=== PATIENT | male | born 1950 | race Caucasian/White ===

== ENCOUNTER 2017-06-24 07:16 | Inpatient (IN) | payer OTHER, BC ==
[~2017-06-24] VITALS: Ht 180.3 cm; Wt 109.6 kg
[~2017-06-24 07:16] MED LIST: ENAL1TAB31 PO; HYDR25TA5 PO; NAPR1TAB9 PO
[2017-06-24] MEDS ORDERED: OPTIRAY 320 IV PRN (07:45)
[2017-06-24 07:47] LABS: BASO % 0.3 %; BASO ABS # 0.02 K/uL (0-0.2); EOS % 3.4 %; HEMATOCRIT 41.3 % (42-52); HEMOGLOBIN 14.5 g/dL (14.0-18.0); IG# 0.01 K/uL (0.00-0.02); LYMPH % 40.1 %; LYMPH ABS # 2.38 K/uL (1.2-3.4); MEAN CELL VOLUME 93.2 fL (80-100); MEAN CORPUSCULAR HEMOGLOBIN 32.7 pg (25-34); MEAN CORPUSCULAR HGB CONC 35.1 g/dl (32-36); MEAN PLATELET VOLUME 9.6 fL (7.4-10.4); MONO % 11.8 %; NEUT % 44.2 %; NEUT ABS # 2.63 K/uL (1.4-6.5); PLATELET COUNT 170 K/uL (130-400); RED CELL DISTRIBUTION WIDTH CV 13.7 % (11.5-14.5); RED CELL DISTRIBUTION WIDTH SD 47.1 fL (36.4-46.3); WHITE BLOOD COUNT 5.94 K/uL (4.8-10.8)
[2017-06-24 08:04] LABS: ALBUMIN 3.9 gm/dl (3.4-5.0); CALCIUM 9.2 mg/dl (8.5-10.1); CREATININE 0.88 mg/dl (0.60-1.40); POTASSIUM 3.7 mmol/L (3.5-5.1)
[2017-06-24 08:07] LABS: TOTAL PROTEIN 8.5 gm/dl (6.4-8.2)
[2017-06-24] MEDS ORDERED: ACET325T96 PO (08:09)
--- NOTE | 2017-06-24 08:29 | EMERGENCY ROOM VISIT NOTE ---
ED Visit Note First contact with patient: 07:19 I have seen and examined this patient with Aaron Samaniego and generally agree with the treatment plan as discussed.
--- NOTE | 2017-06-24 10:39 | DIAGNOSTIC IMAGING REPORT ---
ABDOMEN AND PELVIS CT WITH IV AND ORAL CONTRAST CT DOSE: 1262.99 mGy.cm HISTORY: Acute upper abdominal pain upper abdominal pain TECHNIQUE: Multiaxial CT images of the abdomen and pelvis were performed following the use of intravenous and oral contrast. A dose lowering technique was utilized adhering to the principles of ALARA. COMPARISON STUDY: CT abdomen and pelvis 03/15/2015. FINDINGS: Minimal dependent subsegmental bibasilar atelectasis. No pneumatosis or pneumoperitoneum identified. Imaged inferior cardiac chambers are mildly enlarged with coronary arterial disease. Hepatic steatosis. No intrahepatic biliary ductal dilation. The spleen, gallbladder and adrenal glands are within normal limits. There is mild peripancreatic edema, notably surrounding the distal pancreatic body and tail with trace fluid within the lesser sac tracking along the left pericolic gutter. No focal hepatic fluid collections. There are a few punctate calcifications noted involving the pancreatic tail. No pancreatic ductal dilation or focal pancreatic mass identified. Low attenuating lesions of the kidneys bilaterally, left greater than right suggest renal cysts, largest which measures 4.2 cm. Mild nonspecific bilateral perinephric stranding. There are 3 nonobstructing calculi of the right kidney, all of which measure approximately 4 mm. No renal calculi or hydronephrosis. No ureteral calculi. Ureters and urinary bladder are within normal limits. Coarse calcifications of the central prostate. Mild atherosclerosis of the aorta. No bulky adenopathy. There is no bowel obstruction. Moderate sigmoid diverticulosis without CT evidence of acute diverticulitis. Appendix is normal. Diastases recti. Soft tissues appear unremarkable. Bones appear intact. Advanced multilevel facet arthropathy of the lower lumbar spine. Grade 1 anterolisthesis L4 on L5 likely secondary to long-standing facet disease. Mild levoscoliosis of the lumbar spine. IMPRESSION: 1. Findings compatible with mild acute pancreatitis. No acute pancreatic fluid collections identified. There are a few punctate calcifications of the pancreatic tail which may reflect sequela of chronic pancreatitis. 2. Nonobstructing right-sided nephrolithiasis. No hydronephrosis. 3. No bowel obstruction. 4. Moderate sigmoid colon diverticulosis without diverticulitis. 5. Hepatic steatosis. Electronically signed by: Gaurang Michelle M.D. 06/24/2017 10:38 AM Dictated Date/Time: 06/24/2017 10:27 AM
[2017-06-24] MEDS ORDERED: POLYETHYLENE (MIRALAX) 17 GM PACK PO PRN (11:30)
[2017-06-24] MEDS ORDERED: MAGNESIUM HYDROXIDE SUSP 30 ML UDC PO PRN (11:30)
[2017-06-24] MEDS ORDERED: ONDANSETRON INJ 2 MG/ML 2 ML VIAL IV PRN (11:30)
[2017-06-24] MEDS ORDERED: ALUMINUM/MAGNESIUM/SIMETH (MAALOX MAX) 30 ML UDC PO PRN (11:30)
[2017-06-24 11:40] VITALS: O2SAT 96; BMI 33.7
--- NOTE | 2017-06-24 11:53 | History and Physical ---
History & Physical Date of Service Jun 24, 2017. History & Physical admit #[id number]
--- NOTE | 2017-06-24 12:24 | HISTORY & PHYSICAL EXAMINATION ---
DATE OF ADMISSION: 06/24/2017 CHIEF COMPLAINT: Abdominal pain. HISTORY OF PRESENT ILLNESS: The patient is a very pleasant 66-year-old male who notes that he has had worsening abdominal pain over the last couple of days, he had a viral type illness at the end of the week last week, seemed mostly myalgias, a little bit of not exactly diarrhea, but change in his stools. No nausea, no vomiting at that point in time, but over the weekend and then through the early part of this week it has progressed to where he has had more upper abdominal pain. It hurts worse after he eats. Still no vomiting. No fevers, chills, or sweats, just generally feeling worse. He notes he feels like he is getting dehydrated as well, noting he drank a lot water last night and still did not really even pee much today and with all this going on it felt very reminiscent of when he had pancreatitis a couple years ago and he came to the ER for further evaluation. Here, the workup is consistent with an acute episode of pancreatitis and we were asked to see him for further evaluation and treatment. REVIEW OF SYSTEMS: Otherwise negative, except for as above. PAST MEDICAL HISTORY: Includes hypertension and remote nephrolithiasis. He specifically denies any cardiac disease. PAST SURGICAL HISTORY: Includes orthopedic surgeries of his knees. FAMILY HISTORY: No problems with pancreas or liver issues. Mom of COPD. Dad of silicosis. SOCIAL HISTORY: He is a never smoker, never alcohol, no drugs. He is and lives with his family. ALLERGIES: No known drug allergies. MEDICATIONS: Include enalapril and hydrochlorothiazide and p.r.n. Tylenol. He notes that he has taken enalapril and hydrochlorothiazide since he was in his 40s. PHYSICAL EXAMINATION: VITAL SIGNS: Temperature 36.8, pulse 75, respiratory rate 20, blood pressure 165/107, 95% on room air. GENERAL: He is awake, alert, oriented x3, pleasant, in no acute distress. HEAD, EYES, EARS, NOSE, AND THROAT: Normocephalic, atraumatic. Mucous membranes are moist. CARDIOVASCULAR: Regular without rubs, murmurs, or gallops. LUNGS: Clear to auscultation bilaterally. No rales, rhonchi, or wheezes. Good effort. ABDOMEN: Soft, mildly distended, epigastric tenderness and left upper quadrant tenderness without any guarding, rebound or rigidity. He has no right upper quadrant tenderness. The remainder of his abdomen other than being mildly distended is benign. EXTREMITIES: Show no cyanosis, clubbing or edema. No calf tenderness. SKIN: Shows no rashes, no pallor or icterus. MUSCULOSKELETAL: Exam shows no paraspinal hypertonicity in the back and no other gross abnormalities. MENTAL STATE: Good recent and remote recall. Normal mood and affect. Good judgment and insight. NEUROLOGIC: Cranial nerves II-XII are grossly intact. Gross motor and sensory are intact. LABORATORY AND DIAGNOSTICS: CBC with a white count of 5.94, hemoglobin 14.5, platelets 170. Complete metabolic panel with sodium 135, potassium 3.7, chloride 99, CO2 26, BUN 22, creatinine 0.88, calcium 9.2, glucose 122. Total bili is 0.5 with a direct of 0.1, AST 25, ALT 38, alkaline phosphatase 46, total protein 8.5, albumin 3.9, amylase 547, lipase 9,041. Urinalysis dark yellow, clear. Specific gravity 1.037, trace ketones, 5-10 hyaline casts, 10-[address] abdomen and pelvis shows fatty liver. No intrahepatic ductal dilation. Spleen, gallbladder, adrenal glands within normal limits. Mild peripancreatic edema notably surrounding the distal pancreatic body and tail with trace fluid in the lesser sac tracking along the left pericolic gutter. No focal hepatic collections. A few punctate calcifications involving pancreatic tail. No pancreatic ductal dilation or focal pancreatic mass identified. Low attenuating lesions of the kidneys bilaterally, left greater than right suggesting cysts, the largest of which is 4.2 cm, mild nonspecific bilateral perinephric stranding, 3 mm nonobstructing calculi of the right kidney, all of which measure approximately 4 mm. No renal calculi or hydronephrosis. No ureteral calculi. Ureters and urinary bladder are within normal limits. Coarse calcifications central prostate, mild atherosclerosis of the aorta. No bulky adenopathy, no bowel obstruction. Diverticulosis without diverticulitis. Appendix normal. Diastasis recti, soft tissue unremarkable. Bones intact. Facet arthropathy of the lower lumbar spine with grade 1 anterolisthesis of L4 on L5 appearing chronic and mild levoscoliosis of the lumbar spine. ASSESSMENT AND PLAN: 1. Acute probably recurrent pancreatitis. The differential for this obviously is broad, but it seems the most likely is post viral versus idiopathic. Biliary disease seems unlikely given that 3 years ago he had no gallstones. He has had no biliary type symptoms. He has a normal AST, ALT and alkaline phosphatase and no evidence of ductal issues on CT. Certainly if his symptoms change or other findings arise an ultrasound could be evaluated or MRCP or ERCP EUS could be done as well. At this point in time, these seem to be highly likely to be of little to no yield. Likewise while both of his blood pressure medicines can cause pancreatitis as a side effect, he has been on for probably about 25 years with no problems and given that he is feeling good in between this episode of pancreatitis and the episode from 2015, it seems extremely unlikely that that is the case. He does not drink so alcohol could not be the culprit. Certainly with fatty liver and his body habitus, while his triglycerides and sugars appeared good 3 years ago, common things are common so we will check an A1c and triglyceride level, but again most likely this is immune mediated. He also notes specifically that he was feeling fine with absolutely no residual or chronic symptoms in between the last episode and now. He also notes that one of the things that makes him pleased with his primary care physician is her very practical approach to things so in this respect we will initiate care managing the acute episode of pancreatitis with IV fluids, n.p.o. and pain control and then in terms of the recurrent the above differential noted and the probabilities of above noted, we will check triglycerides and A1c, but otherwise allow any further workup to fall under the auspices of his PCP, probably simply with following him clinically, serial exams and maybe a lipase level on what appears to be a good day. Should there be any abnormalities then further workup could be launched. I suspect he will do quite well. He certainly appears to need to be admitted, but does not appear to be in any extreme duress. 2. Fatty liver. A1c and triglycerides as above. About 2-1/2 years ago, his total cholesterol was 151 with an LDL of 98, HDL of 35. Triglycerides were 88. His A1c almost a decade ago was 6, will wait on current findings. He does not drink. Otherwise outpatient followup. 3. Mildly elevated total protein, outpatient followup. 4. Mild hyponatremia, probably relates to poor p.o. intake and attempted hydration with predominantly water alone. We will follow. 5. Hypertension. We will hold his home meds for now as noted above. Certainly his home meds can be culprit in pancreatitis but does not appear to be the case with him. 6. Deep venous thrombosis prophylaxis, Lovenox. 7. Disposition. He will be admitted to med/surg under the [facility] Hospitalist service.
--- NOTE | 2017-06-24 13:50 | EMERGENCY ROOM VISIT NOTE ---
ED Visit Note First contact with patient: 07:19 Chief Complaint: Abdominal pain. History of Present Illness: Mr. Caicedo is a 66-year-old white male who ambulates into the ED complaining of bilateral upper abdominal pain. Historically patient reports he has a history of idiopathic pancreatitis; he was admitted approximately 3 years ago the hospital for his pancreatitis. The exact cause of his pancreatitis was not identified was not related to his gallbladder or alcohol use. Patient reports late last week he reports he started developing some sensations of what he describes as flulike symptoms including body aches, mild fevers, headaches. They resolved after approximately 3 days. Then on Thursday, 2 days ago, he started developing abdominal pain. He reports since that time the pain has been constant but has waxed and waned in intensity. He does report this is similar to his previous pain associated with his pancreatitis. He places his discomfort just below the epigastrium in both the right and left upper quadrants. He describes his discomfort as a deep achy sensation. Currently he rates his discomfort 7/10. The pain is nonradiating. His pain worsens after he eats. He has not identified any alleviating factors that time. He reports he has taken acetaminophen with questionable results. Associated with his pain he reports he's had a few episodes of watery stools. He denies any associated fevers, chills, sweats, skin eruptions, skin color changes, chest pain, shortness of breath, nausea, vomiting, rectal bleeding, black/tarry stools, urinary symptoms, hematuria, back/flank pain. Review of Systems: As noted above in history of present illness. At least body systems were reviewed and found to be negative as noted above. Past Medical History: As previously noted and hypertension. Current Medications: Acetaminophen, Vasotec, hydrochlorothiazide. Allergies to Medications: Patient denies. Social History: Patient is currently retired; he feels safe in his home environment; he denies tobacco and alcohol use. Physical Examination: Vital Signs: Date Time Temp Pulse Resp B/P (MAP) Pulse Ox O2 Delivery O2 Flow Rate FiO2 06/24/17 10:43 78 18 145/94 96 Room Air 06/24/17 09:18 86 16 161/98 96 Room Air 06/24/17 08:01 64 06/24/17 07:49 73 16 142/84 96 Room Air 06/24/17 07:19 36.8 75 20 165/107 95 Room Air GENERAL: 66-year-old male in mild distress due to pain, nontoxic-appearing, afebrile and hemodynamically stable. NEUROLOGICAL: Awake, alert and oriented to person, place and time. Answering questions appropriately and following commands. Normal gait. Good hand eye coordination. No focal motor sensory deficits. SKIN: Warm, dry and pink. No soft tissue eruptions or trauma noted. HEENT: Atraumatic and normocephalic. PERRLA. Sclera white and conjunctiva pink. No drainage from naris. Oral cavity moist and pink. Pharynx is nonerythematous or edematous. Speech normal. No lymphadenopathy. Trachea midline. No jugular venous distention. BACK: No tenderness over the bony spine. No CVA tenderness. THORAX: Lungs sounds are clear to auscultation and equal bilaterally with symmetrical chest wall. No wheezing, rales or rhonchi. No crepitus, tenderness , subcutaneous air or deformities noted. HEART: Regular rate and rhythm. No gallops, rubs or murmurs are appreciated. ABDOMEN: Flat and soft with mild upper abdominal pain over the superior borders of the right and left upper quadrants. Decreased bowel sounds in all quadrants. No guarding, rigidity or organomegaly. EXTREMITIES: Moves all extremities well on command and with purpose. All distal neurovascular statuses are intact and equal bilaterally. No calf tenderness or cords. ED Course: Patient is assessed as noted above. Patient's medication list was reviewed. Laboratory Testing: Test 06/24/17 07:30 Range/Units White Blood Count 5.94 4.8-10.8 K/uL Red Blood Count 4.43 4.7-6.1 M/uL Hemoglobin 14.5 14.0-18.0 g/dL Hematocrit 41.3 42-52 % Mean Corpuscular Volume 93.2 80-100 fL Mean Corpuscular Hemoglobin 32.7 25-34 pg Mean Corpuscular Hemoglobin Concent 35.1 32-36 g/dl Platelet Count 170 130-400 K/uL Mean Platelet Volume 9.6 7.4-10.4 fL Neutrophils (%) (Auto) 44.2 % Lymphocytes (%) (Auto) 40.1 % Monocytes (%) (Auto) 11.8 % Eosinophils (%) (Auto) 3.4 % Basophils (%) (Auto) 0.3 % Neutrophils # (Auto) 2.63 1.4-6.5 K/uL Lymphocytes # (Auto) 2.38 1.2-3.4 K/uL Monocytes # (Auto) 0.70 0.11-0.59 K/uL Eosinophils # (Auto) 0.20 0-0.5 K/uL Basophils # (Auto) 0.02 0-0.2 K/uL RDW Standard Deviation 47.1 36.4-46.3 fL RDW Coefficient of Variation 13.7 11.5-14.5 % Immature Granulocyte % (Auto) 0.2 % Immature Granulocyte # (Auto) 0.01 0.00-0.02 K/uL Urine Color DK YELLOW Urine Appearance CLEAR CLEAR Urine pH 5.0 4.5-7.5 Urine Specific [facility] 1.037 1.000-1.030 Urine Protein 1+ NEG Urine Glucose (UA) NEG NEG Urine Ketones TRACE NEG Urine Occult Blood NEG NEG Urine Nitrite NEG NEG Urine Bilirubin NEG NEG Urine Urobilinogen NEG NEG Urine Leukocyte Esterase NEG NEG Urine WBC (Auto) 1-5 0-5 /hpf Urine RBC (Auto) 0-4 0-4 /hpf Urine Hyaline Casts (Auto) 5-10 0-5 /lpf Urine Epithelial Cells (Auto) 10-20 0-5 /lpf Urine Bacteria (Auto) NEG NEG Sodium Level 135 136-145 mmol/L Potassium Level 3.7 3.5-5.1 mmol/L Chloride Level 99 98-107 mmol/L Carbon Dioxide Level 26 21-32 mmol/L Anion Gap 9.0 3-11 mmol/L Blood Urea Nitrogen 22 7-18 mg/dl Creatinine 0.88 0.60-1.40 mg/dl Est Creatinine Clear Calc Drug Dose 101.1 ml/min Estimated GFR () 102.3 Estimated GFR (Non- 88.3 BUN/Creatinine Ratio 24.7 10-20 Random Glucose 122 70-99 mg/dl Calcium Level 9.2 8.5-10.1 mg/dl Total Bilirubin 0.5 0.2-1 mg/dl Direct Bilirubin 0.1 0-0.2 mg/dl Aspartate Amino Transf (AST/SGOT) 25 15-37 U/L Alanine Aminotransferase (ALT/SGPT) 38 12-78 U/L Alkaline Phosphatase 46 45-117 U/L Total Protein 8.5 6.4-8.2 gm/dl Albumin 3.9 3.4-5.0 gm/dl Triglycerides Level 89 0-150 mg/dl Amylase Level 547 25-115 U/L Lipase 9041 73-393 U/L Contrast Abdominal/Pelvic CT: Was reviewed by myself and read by the radiologist showing mild acute pancreatitis with no fluid collections. Radiologist does note a few punctate calcifications within the tail of the pancreas, nonobstructing right sided nephrolithiasis with no hydronephrosis, no bowel obstruction, mild sigmoid colon diverticulosis without diverticulitis and hepatic steatosis. Patient was hydrated with normal saline; he refused pain medications. Patient was reassessed multiple times during his stay in the emergency department; he was offered pain medications and continue to refuse. Patient's case was reviewed with Dr. Ponce; we agreed on diagnostic approach , treatment, disposition and plan. Patient's case was consulted with case management and Dr. Damon, hospitalist ; for hospital observation or admission. Patient was educated about today's findings. Clinical Impression: Acute pancreatitis. Decision-Making: Initially my differential diagnosis I considered pancreatitis, hepatitis, cholecystitis, constipation, bowel obstruction, GERD and other causes. Patient's blood pressure: Elevated. Blood pressure disposition: Situational; follow-up. Disposition and Plan: Patient be brought in the hospital for observation/ admission; please see Dr. Damon's notes and orders for final disposition and plan.
[2017-06-24] MEDS: LACTATED RINGER'S 1000ML 1,000 ML IV SCH ×2 (14:35→19:15)
[2017-06-24 16:02] VITALS: BP 161/98; PULSE 84; TEMP 36.9; O2SAT 97
[2017-06-24] MEDS: ENOXAPARIN 40 MG/0.4 ML SYR SQ SCH (18:00)
[2017-06-24] MEDS: MoRPHine SULFATE 2 MG/ML CARP IV PRN (21:25)
[2017-06-24] MEDS ORDERED: COUGH DROP (SUGAR FREE) LOZ 24 LOZ/1 BOX ONE (21:39)
[2017-06-24] MEDS ORDERED: COUGH DROP (SUGAR FREE) LOZ 24 LOZ/1 BOX PO PRN (23:00)
[2017-06-24 23:41] VITALS: BP 123/76; PULSE 63; TEMP 36.4; O2SAT 92
[2017-06-25 00:02] VITALS: BP 131/71; PULSE 83; TEMP 37.1; O2SAT 95
[2017-06-25] MEDS: LACTATED RINGER'S 1000ML 1,000 ML IV SCH ×4 (00:15→17:54)
[2017-06-25] MEDS: MoRPHine SULFATE 2 MG/ML CARP IV PRN (03:09)
[2017-06-25 06:15] LABS: HEMOGLOBIN A1C 6.4 % (4.5-5.6)
[2017-06-25 07:46] LABS: HEMATOCRIT 36.6 % (42-52); HEMOGLOBIN 12.5 g/dL (14.0-18.0); MEAN CELL VOLUME 92.9 fL (80-100); MEAN CORPUSCULAR HEMOGLOBIN 31.7 pg (25-34); MEAN CORPUSCULAR HGB CONC 34.2 g/dl (32-36); MEAN PLATELET VOLUME 9.6 fL (7.4-10.4); PLATELET COUNT 158 K/uL (130-400); RED CELL DISTRIBUTION WIDTH CV 13.3 % (11.5-14.5); RED CELL DISTRIBUTION WIDTH SD 45.4 fL (36.4-46.3); WHITE BLOOD COUNT 5.55 K/uL (4.8-10.8)
[2017-06-25 07:58] VITALS: BP 158/86; PULSE 90; TEMP 36.9; O2SAT 95
[2017-06-25 08:06] LABS: CALCIUM 8.6 mg/dl (8.5-10.1); CREATININE 0.71 mg/dl (0.60-1.40)
[2017-06-25 08:13] LABS: BASO % 0.4 %; BASO ABS # 0.02 K/uL (0-0.2); EOS % 3.8 %; EOS ABS # 0.21 K/uL (0-0.5); IG# 0.01 K/uL (0.00-0.02); LYMPH % 32.1 %; LYMPH ABS # 1.78 K/uL (1.2-3.4); MONO ABS # 0.72 K/uL (0.11-0.59); NEUT % 50.5 %; NEUT ABS # 2.81 K/uL (1.4-6.5)
--- NOTE | 2017-06-25 09:07 | DIAGNOSTIC IMAGING REPORT ---
Biliary ultrasound CLINICAL HISTORY: pancreatitis COMPARISON STUDY: CT scan dated 06/24/2017, gallbladder ultrasound dated 03/17/2015 FINDINGS: The liver is of increased echogenicity, consistent with hepatic steatosis. No gallstones are visualized. There is no gallbladder wall thickening. There is no ductal dilatation. The common bile duct measured 5 mm. The head and body the pancreas appear normal. The tail was obscured by bowel gas. There is no right-sided hydronephrosis. There is a suspected right renal calculus. IMPRESSION: 1. Ultrasonographically normal gallbladder. No evidence of ductal dilatation 2. Hepatic steatosis 3. Right-sided nephrolithiasis Electronically signed by: Brian Valdez M.D. 06/25/2017 9:06 AM Dictated Date/Time: 06/25/2017 9:04 AM
--- NOTE | 2017-06-25 09:25 | Hospitalist Progress Note ---
Hospitalist Progress Note Date of Service Jun 25, 2017. Subjective Pt evaluation today including: conversation w/ patient, physical exam, chart review, lab review, review of studies Pain: mild epigastric pain Voiding: no voiding problems The patient was seen and examined this morning. Pt reports doing well today. His pain is much more tolerable today. Overnight he required two doses of morphine for pain, and he does have a dull headache today, along with feeling of not quite thinking straight. He is hoping to try to drink something soon, will order clears for today and trial. Pt has been ambulating about the rodriguez. Constitutional: No fever, No chills, No sweats, No fatigue Eyes: No redness, No diplopia ENT: No hearing loss, No nasal symptoms Respiratory: No cough, No sputum, No wheezing, No shortness of breath Cardiovascular: No see HPI, No chest pain, No edema Abdomen: + see HPI, No nausea, No diarrhea, No constipation Musculoskeletal: No joint pain, No muscle pain, No swelling Male : No dysuria, No incontinence Psychiatric: No depression symptoms, No anxiety Endo: No fatigue Skin: No rash, No itch Objective Vital Signs Date Time Temp Pulse Resp B/P (MAP) Pulse Ox O2 Delivery O2 Flow Rate FiO2 06/25/17 07:58 36.9 90 18 158/86 (110) 95 Room Air 06/25/17 00:30 Room Air 06/25/17 00:02 37.1 83 18 131/71 (91) 95 Room Air 06/24/17 23:41 36.4 63 18 123/76 (92) 92 Nasal Cannula 2.0 06/24/17 16:02 36.9 84 20 161/98 (119) 97 Room Air 06/24/17 16:00 Room Air 06/24/17 12:45 Room Air 06/24/17 12:23 85 18 157/103 97 06/24/17 12:22 85 18 157/103 97 Room Air 06/24/17 11:40 96 Room Air 06/24/17 11:31 81 06/24/17 10:43 78 18 145/94 96 Room Air Physical Exam General Appearance: WD/WN, no apparent distress Eyes: PERRL, EOMI ENT: hearing grossly normal, pharynx normal Neck: supple, no JVD Respiratory/Chest: lungs clear, no respiratory distress, no accessory muscle use, + pertinent finding (on RA) Cardiovascular: regular rate, rhythm, no murmur Abdomen: normal bowel sounds, soft, + tenderness (mild with deep palpation in epigastric) Extremities: non-tender, no pedal edema, no calf tenderness Neurologic/Psychiatric: alert, normal mood/affect, oriented x 3 Laboratory Results Last 24 Hours Test 06/25/17 07:14 White Blood Count 5.55 K/uL Red Blood Count 3.94 M/uL Hemoglobin 12.5 g/dL Hematocrit 36.6 % Mean Corpuscular Volume 92.9 fL Mean Corpuscular Hemoglobin 31.7 pg Mean Corpuscular Hemoglobin Concent 34.2 g/dl Platelet Count 158 K/uL Mean Platelet Volume 9.6 fL Neutrophils (%) (Auto) 50.5 % Lymphocytes (%) (Auto) 32.1 % Monocytes (%) (Auto) 13.0 % Eosinophils (%) (Auto) 3.8 % Basophils (%) (Auto) 0.4 % Neutrophils # (Auto) 2.81 K/uL Lymphocytes # (Auto) 1.78 K/uL Monocytes # (Auto) 0.72 K/uL Eosinophils # (Auto) 0.21 K/uL Basophils # (Auto) 0.02 K/uL RDW Standard Deviation 45.4 fL RDW Coefficient of Variation 13.3 % Immature Granulocyte % (Auto) 0.2 % Immature Granulocyte # (Auto) 0.01 K/uL Red Blood Cell Morphology Unremarkable Sodium Level 135 mmol/L Potassium Level 4.0 mmol/L Chloride Level 100 mmol/L Carbon Dioxide Level 26 mmol/L Anion Gap 9.0 mmol/L Blood Urea Nitrogen 16 mg/dl Creatinine 0.71 mg/dl Est Creatinine Clear Calc Drug Dose 125.3 ml/min Estimated GFR () 111.7 Estimated GFR (Non- 96.4 BUN/Creatinine Ratio 22.6 Random Glucose 103 mg/dl Calcium Level 8.6 mg/dl Lipase 4498 U/L Assessment and Plan This is a 66 yo M with PMHX of recurrent pancreatitis, hypertension and remote nephrolithiasis Acute pancreatitis - Possible post viral vs idiopathic etiology - Lipase trending down from >9000 to 4498 today - trial clear liquid diet - Continue supportive care with pain control, IVFs - if tolerates clears, can turn off IVF later tonight or tomorrow morning. - Pt denies etoh use - Changed vasotec to amlodipine as this does have a small side effect profile to cause pancreatitis. Pt notes a chronic dry cough which should also be alleviated with the medication switch. - Abd U/S checked today: Ultrasonographically normal gallbladder. No evidence of ductal dilatation, hepatic steatosis, right-sided nephrolithiasis - Abd CT also appears essentially unremarkable. New onset DM II - Hgb A1C = 6.4 - diet and exercise modifications will need to be discussed in detail prior to leave, - can ask PCP to follow up HTN - Not on meds THREAD LASTER CODE STATUS: Full code DVT ppx: Lovenox, ambulatory Disposition: From home, discharge when medically stable, likely tomorrow if tolerates diet and pain well controlled today.
[2017-06-25] MEDS: ACETAMINOPHEN 325 MG TAB PO PRN ×3 (09:31→21:33)
[2017-06-25] MEDS: AMLODIPINE BESYLATE 5 MG TAB PO SCH (12:46)
[2017-06-25 15:23] VITALS: BP 169/90; PULSE 77; TEMP 37; O2SAT 96
[2017-06-25 16:00] VITALS: O2SAT 96
[2017-06-25] MEDS: ENOXAPARIN 40 MG/0.4 ML SYR SQ SCH (17:51)
[2017-06-25 21:35] VITALS: BP 160/88; PULSE 74
[2017-06-25 23:26] VITALS: BP 145/77; PULSE 80; TEMP 37.1; O2SAT 93
[2017-06-26] MEDS: LACTATED RINGER'S 1000ML 1,000 ML IV SCH ×4 (01:15→11:15)
[2017-06-26 08:02] VITALS: BP 170/81; PULSE 77; TEMP 37; O2SAT 96
[2017-06-26] MEDS: AMLODIPINE BESYLATE 5 MG TAB PO SCH (09:13)
[2017-06-26 11:00] VITALS: BP 170/92
[2017-06-26] MEDS ORDERED: NRV5 PO (12:03)
--- NOTE | 2017-06-26 12:07 | Discharge Instructions ---
Discharge Instructions Date of Service Jun 26, 2017. Admission Reason for Admission: Acute Pancreatitis Discharge Discharge Diagnosis / Problem: Acute pancreatitis Discharge Goals Goal(s): Improve disease control Activity Recommendations Activity Limitations: resume your previous activity . Instructions / Follow-Up Instructions / Follow-Up Please maintain a low fat/low fiber diet for the next couple of days and then advance as tolerated. Please follow up with your primary care provider in about a week Current Hospital Diet Patient's current hospital diet: Low Fat Diet, Low Fiber Diet Discharge Diet Recommended Diet: Low Fiber Diet, Low Fat Diet Procedures Procedures Performed: Abdominal US Abdominal CT Pending Studies Studies pending at discharge: no Laboratory Results Hemoglobin A1c Test 06/24/17 07:30 Range/Units Estimated Average Glucose 137 mg/dl Hemoglobin A1c 6.4 H 4.5-5.6 % Lipid Panel Test 06/24/17 07:30 Range/Units Triglycerides Level 89 0-150 mg/dl Medical Emergencies . Who to Call and When: Medical Emergencies: If at any time you feel your situation is an emergency, please call 911 immediately. . Non-Emergent Contact Non-Emergency issues call your: Primary Care Provider Call Non-Emergent contact if: you have any medication questions . . "Provider Documentation" section prepared by Maribel Wilson. . VTE Core Measure Inpt VTE Proph given/why not?: Refusal of treatmnt by pt
--- NOTE | 2017-06-26 12:23 | Discharge Summary ---
Discharge Summary Date of Service Jun 26, 2017. Discharge Summary Admission Date: Jun 24, 2017 at 11:25 Discharge Date: Jun 26, 2017 Discharge Disposition: Home Principal Diagnosis: Acute Pancreatitis Problems/Secondary Diagnoses: New onset DM II, HTN Immunizations: Have You Had Influenza Vaccine: No History of Tetanus Vaccine?: Yes Tetanus Immunization Date: Apr 08, 2007 History of Pneumococcal: No History of Hepatitis B Vaccine: No Procedures: Biliary ultrasound CLINICAL HISTORY: pancreatitis COMPARISON STUDY: CT scan dated 06/24/2017, gallbladder ultrasound dated 03/17/2015 FINDINGS: The liver is of increased echogenicity, consistent with hepatic steatosis. No gallstones are visualized. There is no gallbladder wall thickening. There is no ductal dilatation. The common bile duct measured 5 mm. The head and body the pancreas appear normal. The tail was obscured by bowel gas. There is no right-sided hydronephrosis. There is a suspected right renal calculus. IMPRESSION: 1. Ultrasonographically normal gallbladder. No evidence of ductal dilatation 2. Hepatic steatosis 3. Right-sided nephrolithiasis ABDOMEN AND PELVIS CT WITH IV AND ORAL CONTRAST CT DOSE: 1262.99 mGy.cm HISTORY: Acute upper abdominal pain upper abdominal pain TECHNIQUE: Multiaxial CT images of the abdomen and pelvis were performed following the use of intravenous and oral contrast. A dose lowering technique was utilized adhering to the principles of ALARA. COMPARISON STUDY: CT abdomen and pelvis 03/15/2015. FINDINGS: Minimal dependent subsegmental bibasilar atelectasis. No pneumatosis or pneumoperitoneum identified. Imaged inferior cardiac chambers are mildly enlarged with coronary arterial disease. Hepatic steatosis. No intrahepatic biliary ductal dilation. The spleen, gallbladder and adrenal glands are within normal limits. There is mild peripancreatic edema, notably surrounding the distal pancreatic body and tail with trace fluid within the lesser sac tracking along the left pericolic gutter. No focal hepatic fluid collections. There are a few punctate calcifications noted involving the pancreatic tail. No pancreatic ductal dilation or focal pancreatic mass identified. Low attenuating lesions of the kidneys bilaterally, left greater than right suggest renal cysts, largest which measures 4.2 cm. Mild nonspecific bilateral perinephric stranding. There are 3 nonobstructing calculi of the right kidney, all of which measure approximately 4 mm. No renal calculi or hydronephrosis. No ureteral calculi. Ureters and urinary bladder are within normal limits. Coarse calcifications of the central prostate. Mild atherosclerosis of the aorta. No bulky adenopathy. There is no bowel obstruction. Moderate sigmoid diverticulosis without CT evidence of acute diverticulitis. Appendix is normal. Diastases recti. Soft tissues appear unremarkable. Bones appear intact. Advanced multilevel facet arthropathy of the lower lumbar spine. Grade 1 anterolisthesis L4 on L5 likely secondary to long-standing facet disease. Mild levoscoliosis of the lumbar spine. IMPRESSION: 1. Findings compatible with mild acute pancreatitis. No acute pancreatic fluid collections identified. There are a few punctate calcifications of the pancreatic tail which may reflect sequela of chronic pancreatitis. 2. Nonobstructing right-sided nephrolithiasis. No hydronephrosis. 3. No bowel obstruction. 4. Moderate sigmoid colon diverticulosis without diverticulitis. 5. Hepatic steatosis. Medication Reconciliation New Medications: Amlodipine Besylate (Amlodipine Besylate) 5 Mg Tab 5 MG PO QAM for 30 Days, #30 TAB Continued Medications: Acetaminophen Tab (Tylenol) 325 Mg Tab 650 MG PO BID Enalapril Maleate (Vasotec) 20 Mg Tab 20 MG PO QAM Hydrochlorothiazide (Hydrochlorothiazide) 25 Mg Tab 25 MG PO DAILY Discharge Exam ROS Constitutional: no chills, aches, sweats or fever Respiratory: no sob,cough, sputum, or wheezing Cardiac: no chest pain, palpitations, edema, orthopnea or lightheadedness GI: no abdominal pain, nausea, vomiting, diarrhea or constipation : no dysuria or hesitancy Extremities: no joint pain or weakness Skin: no rash All other systems reviewed and negative PE General: no distress Eyes: normal inspection, PERLL Respiratory: chest non tender, clear to auscultation, normal breath sounds, no respiratory distress, no accessory muscle use Cardiac: regular rate and rhythm, no rub or gallop, no murmur, no edema, no jvd GI/: active bowel sounds, no abd pain or tenderness, soft, non distended Extremities: normal range of motion, normal strength, non tender Neuro/Psych: alert and oriented x 3, normal mood and affect Skin: normal color, dry Hospital Course This is a 66 yo M with PMHX of recurrent pancreatitis, hypertension and remote nephrolithiasis Acute pancreatitis - Possible post viral vs idiopathic etiology - Lipase trended down from >9000 - tolerated advancing diet to low fat/low fiber today - has not required analgesia in 24 hours and is pain free today - Pt denied etoh use - Changed vasotec to amlodipine as this does have a small side effect profile to cause pancreatitis. Pt notes a chronic dry cough which should also be alleviated with the medication switch. - Abd U/S checked today: Ultrasonographically normal gallbladder. No evidence of ductal dilatation, does have hepatic steatosis, right-sided nephrolithiasis. Hepatic steatosis can be addressed with outpatient follow up with pcp - Abd CT also appears essentially unremarkable. Prediabetes - patient provided education - Hgb A1C = 6.4 - should be addressed with follow up with pcp HTN - amlodipine instead of vasotec for home as above, restarted HCTZ which was held due to mild hyponatremia of 135, hyponatremia remained 135 but patient is asymptomatic so would resume HCTZ Total Time Spent: Greater than 30 minutes This includes examination of the patient, discharge planning, medication reconciliation, and communication with other providers. Discharge Instructions Please refer to the electronic Patient Visit Report (Discharge Instructions) for additional information. Follow-Up Follow up with pcp within about a week Additional Copies To Yola Garcia M.D.
[2017-06-26 12:27] VITALS: BP 155/88
[2017-06-26 14:35] VITALS: BP 164/88; PULSE 87; TEMP 37.2; O2SAT 94
[2017-06-26 15:06] VITALS: Ht 180.3 cm; Wt 109.6 kg
[2017-06-26 15:58] VITALS: BP 164/88; PULSE 87; TEMP 37.2; O2SAT 94
== END 2017-06-26 16:38 | disposition home or self-care (01) | DRG 439 ==
LOC: C.EDB 07:17 → C.MS4W 11:25 → EDBEDREQSVC 11:29 → ENRESERV 12:05
PROVIDERS: ADMIT Family Medicine; ATTEND Hospitalist
DX: K85.90 Acute pancreatitis without necrosis or infection, unspecified (principal); E87.1 Hypo-osmolality and hyponatremia; I10 Essential (primary) hypertension; K76.0 Fatty (change of) liver, not elsewhere classified; E11.9 Type 2 diabetes mellitus without complications

== ENCOUNTER 2018-12-16 08:06 | Inpatient (IN) ==
[~2018-12-16 08:06] MED LIST changes: +CEFAZOLIN 2000MG 2,000 MG/15 ML SYR IV SCH; -ENAL1TAB31 PO; -HYDR25TA5 PO; -NAPR1TAB9 PO
--- OUTSIDE RECORDS SUMMARY | 2018-12-16 08:09 | External Medical Summary | Continuity of Care Document ---
:1950 Author Name Bryan M.D., Provider Address Unavailable Unavailable , Care Team Providers Name Role Phone Unavailable Unavailable Unavailable COLEBrice Unavailable Unavailable Unavailable Unavailable Unavailable Problems Hypertension (401.9) (I10) Dysuria (788.1) (R30.0) Ureteral stone (592.1) (N20.1) Allergies and Adverse Reactions No Known Drug Allergies (Allergy) Medications hydroCHLOROthiazide 25 MG Oral Tablet , M.D. Refills: 0 Enalapril Maleate 20 MG Oral Tablet , M.D. Refills: 0 Aleve 220 MG Oral Tablet , M.D. Refills: 0 Procedures History of Knee Replacement Status: Comp leted Immunizations Immunizations not documented Family History natural daughter Family history of kidney stones (V18.69) (Z84.1) Status: Act chrissy Brother Family history of kidney stones (V18.69) (Z84.1) Status: Act chrissy Social History - Smoking Status Never smoker Plan of Treatment Planned Observations Planned Goals not documented Results No Known Results Results not documented
--- NOTE | 2018-12-16 09:11 | XRay Report ---
LEFT KNEE 3 VIEWS CLINICAL HISTORY: Left knee pain. Fall. FINDINGS: AP, crosstable lateral, and sunrise views of the left knee are obtained. No prior studies a re available for comparison at the time of dictation. The examination is degraded by suboptimal posit ioning. The skeletal structures are osteopenic. No fracture is seen. A left knee arthroplasty is in p lace. There has been undersurface remodeling of the patella. No periprosthetic lucency is identified. Question mild dorsal subluxation of the tibial component of the arthroplasty as compared to the dist al femur. There is no joint effusion. Mild overlying soft tissue edema is noted. IMPRESSION: 1. Soft tissue swelling with no radiographic evidence of fracture. 2. A left knee arthroplasty is in place. 3. Question mild posterior subluxation of the tibial component of the arthroplasty as compared to the distal femur. This may be positional and clinical correlation will be required. Electronically signed by: Bert Jamil M.D. 12/16/2018 9:10 AM
--- NOTE | 2018-12-16 10:01 | Emergency Department Note ---
History of Present Illness General Chief complaint: Knee Injury/Pain Stated complaint: LEFT KNEE PAIN Time Seen by Provider: 12/16/18 08:37 History of Present Illness Maximum Pain Intensity: 5 68-year-old male who presents the emergency department for evaluation of left knee pain that is possibly secondary to dislocation. The patient reports a prior history of left knee replacement by [facility]. The patient reports that he was sitting in his recliner this morning, and while attempting to walk backward, felt a pop in the knee. The patient now reports inability to flex or extend the knee, rating his discomfort a 5 out of 10. He denies any other postoperative complications after his surgery that was performed by Dr. Faust. Home Medications Home Medications Medication Instructions Recorded Confirmed Type amlodipine 5 mg PO QAM 12/16/18 12/16/18 History hydrochlorothiazide 25 mg PO QAM 12/16/18 12/16/18 History naproxen sodium [Aleve] 220 mg PO QAM 12/16/18 12/16/18 History Allergies Allergy/AdvReac Type Severity Reaction Status Date / Time No Known Drug Allergies Allergy Unknown NKDA Verified 12/16/18 08:39 Past Med/Surg History Medical History History of pancreatitis Hypertension Surgical History H/O repair of left rotator cuff History of left knee replacement Social History Preferred Language: Icelandic Communication Ability: Effective Rouge Mixer Required: No Beliefs That Will Affect Care: None Current Living Situation: Spouse Other Information That Helps Us Care for You: No Feels Safe at Home: Yes Safety Concerns: Feels Safe At This Time Smoking Status: Never smoker Do You Dip or Chew Tobacco: No Second Hand Exposure: No Tobacco Cessation Education Requested by Patient: No Hx Alcohol Use: No Hx Substance Use: No Review of Systems 10 system review was performed and was negative except for pertinent positives and negatives as indicated in history of present illness Physical Exam Vital Signs Vital Signs - 24 hr 12/16/18 08:11 12/16/18 10:32 Temperature 36.8 C Temperature Source Oral Sepsis Recent Fever Within 48 Hours No Sepsis New/Unexplained Change in Mental Status No Sepsis Action Taken by Nursing No Action Required Pulse Rate 63 Pulse Rate [Finger] 56 L Respiratory Rate 18 20 Blood Pressure 181/94 H Blood Pressure [Left Arm] 140/91 Blood Pressure Mean 123 Blood Pressure Mean [Left Arm] 107 Pulse Oximetry 98 97 Oxygen Delivery Method Room Air Room Air CONSTITUTIONAL: Healthy and well nourished. Alert and oriented X 3. Patient appears in mild discomfort. HEENT: Normocephalic, atraumatic. Pupils equal, round and reactive. No scleral icterus or conjunctival injection. NECK: Full active range of motion without discomfort. LYMPHATICS: No cervical chain adenopathy. RESPIRATORY: Clear to auscultation bilaterally with no wheezing, crackles, rhonchi or stridor. CARDIOVASCULAR: Regular rate and rhythm with no murmurs, rubs or gallops. GASTROINTESTINAL: Bowel sounds present in all quadrants. Soft and nontender to palpation. MUSCULOSKELETAL: Examination shows a deformity of the left knee with posterior displacement of the tibia. The patient has mild discomfort about the patella which appears to be midline. I am unable to perform any passive flexion or extension without significant patient discomfort. Pedal pulses are intact. No soft tissue edema or ecchymosis noted. INTEGUMENTARY: No rash or other significant dermatologic conditions noted. HEMATOLOGIC: No ecchymosis or petechiae. PSYCHIATRIC: Positive affect. NEUROLOGIC: Left lower extremity is sensory intact. Course Patient history and physical exam were performed. Nurse's notes were reviewed. Vital signs were reviewed, showing an initial elevated blood pressure of 181/94. The patient refused any analgesics on initial exam. X-rays of the left knee is concerning for a posterior dislocation of the total knee arthroplasty. I did discuss the case further with Wilbert Martínez PA-C working with , [facility] Orthopedic surgeon. I did offer to order CT angiography study, however was advised that the patient would be admitted, undergo CT angiography and reduction in the operating room. The patient refused any analgesics prior to transfer of care. The patient has remained n.p.o. while in the emergency department, reporting having a couple sips of coffee around 6 AM this morning. Administered Medications Amlodipine Besylate (Norvasc) [facility] [place] Stop: 01/16/19 08:59 Last Admin: 12/16/18 17:06 Dose: 5 mg Documented by: [id number] Hydrochlorothiazide (Hctz) 25 mg PO QAM [facility] Stop: 01/16/19 08:59 Last Admin: 12/16/18 17:06 Dose: 25 mg Documented by: [id number] Cefazolin Sodium (Ancef 2000mg) 2,000 mg in 15 mls @ 3.75 mls/min IV PREOP ALEX; Protocol Stop: 12/17/18 05:59 Last Admin: 12/16/18 14:57 Dose: 3.75 mls/min Documented by: [id number] Medical Decision Making Medical Records Attestation: I reviewed the patient's medical records. Home Medications Current Medication List: was personally reviewed by me Laboratory Data Result diagrams: 12/16/18 12:37 12/16/18 12:37 Imaging Data Attestation: I personally reviewed and interpreted this imaging study as follows: My Impression: My interpretation of left knee x-rays does not show any periprosthetic fractures. There is a questionable mild posterior subluxation of the tibia component compared to the distal femur, which the radiologist reports may be positional. Radiologist's Impression: LEFT KNEE 3 VIEWS CLINICAL HISTORY: Left knee pain. Fall. FINDINGS: AP, crosstable lateral, and sunrise views of the left knee are obtained. No prior studies are available for comparison at the time of dictation. The examination is degraded by suboptimal positioning. The skeletal structures are osteopenic. No fracture is seen. A left knee arthroplasty is in place. There has been undersurface remodeling of the patella. No periprosthetic lucency is identified. Question mild dorsal subluxation of the tibial component of the arthroplasty as compared to the distal femur. There is no joint effusion. Mild overlying soft tissue edema is noted. IMPRESSION: 1. Soft tissue swelling with no radiographic evidence of fracture. 2. A left knee arthroplasty is in place. 3. Question mild posterior subluxation of the tibial component of the arthroplasty as compared to the distal femur. This may be positional and clinical correlation will be required. Blood Pressure Blood Pressure Findings: Elevated blood pressure MDM Narrative Patient presents the emergency department for evaluation of a left primary total knee dislocation that occurred this morning at home. X-rays does not show any periprosthetic fracture. I was concern for possible vascular injury, however orthopedics reported that they would perform further work-up and operative reduction of the dislocation. Impression & Plan Posterior dislocation of knee, closed, Status post total knee replacement, left Discharge Plan Visit Data *Final* Discharge Date/Time: 12/16/18 12:44 Chief Complaint: Knee Injury/Pain Stated Complaint: LEFT KNEE PAIN ED Provider: Rangel Carrillo ED Midlevel Provider: Dakota Cage Discharge Problem: Posterior dislocation of knee, closed, Status post total knee replacement, left Patient Disposition: Admitted As Inpatient Discharge Instructions Interventions: ED Discharge Assessment Last Done: 12/16/18 12:44
[2018-12-16] MEDS ORDERED: ONDANSETRON INJ 2 MG/ML 2 ML VIAL IV PRN ×2 (11:38→16:13)
[2018-12-16] MEDS ORDERED: HYDROmorphone INJ 0.5 MG/0.5 ML SYR IV PRN ×2 (11:38→16:13)
--- NOTE | 2018-12-16 12:19 | History and Physical Report ---
DATE OF ADMISSION: 12/16/2018 CHIEF COMPLAINT: Pain in the left knee. HISTORY OF PRESENT ILLNESS: The patient is a 68-year-old white female known to our practice from previous TKA bilaterally and also a recent rotator cuff surgery by Dr. Garrett. Total knee arthroplasties were placed by, I believe, Dr. Faust and the patient states he was in his usual state of health today when he was sitting in a chair, he states that he had reached down and had flexed his knee to some extent and as he was straightening it out to stand up, he felt a large pop and had pain in his knee and was unable to extend the knee itself. He had difficulty ambulating and was brought to the Emergency Room. He was seen by the staff. X-rays were taken and it was found that there was a question of a posterior subluxation of the tibial component of the arthroplasty, no fractures were noted. However, the patient had had some cough that morning and conscious sedation was not going to be able to be done. He is now going to be admitted to be taken to the operating room for closed reduction of his left TKA dislocation with possibility of open reduction if closed reduction is failed. I discussed this with the patient in detail and Dr. Chew will be speaking with him in a short while as well. The patient is in agreement for the plan and he will now be admitted for further care. PAST MEDICAL HISTORY: Hypertension, nephrolithiasis. He states he has had pancreatitis x2 in the past. He had no diagnosed ulcers of the stomach in the past but states he did have some dark stools at some point after a long-term use of Aleve, which he stopped for quite some time. He has not had any problem with that since then, but has not had any followup or colonoscopies, etc., or EGDs to diagnose anything. He denies diabetes mellitus, tuberculosis, hepatitis, COPD, rheumatic fever. PAST SURGICAL HISTORY: Bilateral total knee arthroplasties about 8 years ago 1 month apart and he had a rotator cuff repair done in his left shoulder approximately 2-[address] Garrett. FAMILY HISTORY: Mother had a history of COPD. Father of silicosis. ALLERGIES: NKDA. REVIEW OF SYSTEMS: No recent fevers, chills, night sweats, unexplained weight loss or weight gain. No flu or cold-like symptoms. No increased cough or sputum production. No increased shortness of breath at rest or on exertion. Denies chest pain, chest pressure, or irregular heartbeat. No history of CAD or myocardial infarction. Above-noted history of chronic nonsteroidal anti-inflammatory use for a while, which caused dark tarry stools, which he then himself stopped taking the NSAIDs and his stools cleared and he has not been seen or treated for anything at that point in time. No recent hematemesis, melena, or hematochezia. No unusual abdominal pain, nausea, vomiting, or diarrhea. No history of hepatitis in the past. History of pancreatitis x2. No history of frequent urinary tract infections, hematuria, pyuria, or dysuria. Positive for renal calculi in the past. No history of CVA, TIA, seizure disorders, or migraine headaches. PHYSICAL EXAMINATION: GENERAL: The patient is a well-developed, well-nourished white male who is alert and oriented x3 and in no acute distress, pleasant and cooperative. VITAL SIGNS: Today were BP 140/91, pulse 56, respirations 20, temperature 36.8, O2 sats 97. SKIN: Warm and dry. Turgor is good. HEENT: Head is normocephalic and atraumatic. There is no scleral icterus or injection. Nasal airway is patent. Oral mucosa is pink and moist. NECK: Supple. HEART: Regular rate and rhythm without murmurs, gallops or splits. LUNGS: CTA without rales, rhonchi or wheezes. ABDOMEN: Soft, round and nontender. Bowel sounds are present x4. GENITALIA AND RECTAL: Not performed at this time. EXTREMITIES: On examination of the patient's left lower extremity, he is seen in a wheelchair currently and is able to stand up, but he is not able to fully extend the left knee. It is locked in place and any type of forcing it does cause him pain. He states he has some slight numbness that is going down the front of his lower extremity below the knee but does not travel all the way to the foot and is very light at this time. He has good range of motion of his left ankle and toes with strengths being equal bilaterally. Distal pulses are equal bilaterally of the upper extremities. Right lower extremity is essentially unaffected and he has a scar from previous right TKA as well and has good range of motion at the ankle, hip and knee. Left upper extremity is in an abduction sling at this time due to recent rotator cuff surgery on the left shoulder. He has good left hand strength and is moving the fingers and wrist well. No further range of motion was done of the elbow and left shoulder at this time. Right upper extremity is within normal limits with range of motion and distal pulses are noted to be equal bilaterally. He denies neck pain, no thoracic or lumbar pain at this time. There is no gross motor or sensory loss other than due to a dislocated left TKA at this time noted. ASSESSMENT: Left total knee arthroplasty dislocation. PLAN: The patient will be taken to the operating room today by Dr. Chew to perform a closed reduction of the dislocated left knee, possible open reduction if closed reduction is failed.
--- NOTE | 2018-12-16 12:23 | XRay Report ---
XR chest 1V portable HISTORY: 68 years-old Male pre op preoperative exam. No acute chest complaints COMPARISON: Chest radiograph 03/15/2015 TECHNIQUE: Portable AP view the chest FINDINGS: Cardiac silhouette is mildly enlarged. Previously questioned nodular density about the left lung base is not definitively seen. There is no pneumothorax, pleural effusion, focal airspace consolidation o r overt pulmonary edema identified. Degenerative changes are seen about the shoulders and spine. IMPRESSION: No acute process. The above report was generated using voice recognition software. It may contain grammatical, syntax o r spelling errors. Electronically signed by: Gaurang Michelle M.D. 12/16/2018 12:21 PM
[2018-12-16 12:46] LABS: Basophils # (auto) 0.04 K/uL (0-0.2); Basophils % (auto) 0.6 %; Eosinophils # (auto) 0.13 K/uL (0-0.5); Hemoglobin 13.8 g/dL (14.0-18.0); Immature Granulocytes # (auto) 0.01 K/uL (0.00-0.02); Immature Granulocytes % (auto) 0.2 %; Lymphocytes % (auto) 32.2 %; Mean Corpuscular Hgb Conc 34.5 g/dL (32-36); Mean Corpuscular Volume 91.7 fL (80-100); Mean Platelet Volume 9.4 fL (7.4-10.4); Monocytes # (auto) 0.65 K/uL (0.11-0.59); Neutrophils # (auto) 3.59 K/uL (1.4-6.5); Platelet Count 204 K/uL (130-400); RDW Coefficient of Variation 13.8 % (11.5-14.5); RDW Standard Deviation 46.3 fL (36.4-46.3); Red Blood Count 4.36 M/uL (4.7-6.1); White Blood Count 6.52 K/uL (4.8-10.8)
[2018-12-16 12:57] LABS: INR 1.1 (0.9-1.1); Prothrombin Time 11.1 Seconds (9.0-12.0)
[2018-12-16 13:03] LABS: BUN Creatinine Ratio 27.2 (10-20); Calcium 9.8 mg/dl (8.5-10.1); Creatinine Clr Calc Pharmacy 104.3 ml/min; Est GFR (African American) 102.3; Est GFR (Non-African American) 88.3; Potassium 3.8 mmol/L (3.5-5.1)
--- NOTE | 2018-12-16 14:34 | Anesthesiology Consultation ---
Date of Service December 16, 2018 Assessment & Plan Chart Review Chart Review: Acceptable Risk for Surgery Consults Requested none History Surgery Operation Date: 12/16/18 15:40 Proposed Procedures p Left Closed Reduction Total Knee Arthroplasty - Luis Chew DO Height/Weight Height: 5 ft 11 in Weight: 115 kg Allergies Allergy/AdvReac Type Severity Reaction Status Date / Time No Known Drug Allergies Allergy Unknown NKDA Verified 12/16/18 08:39 Medications Home Medications Medication Instructions Recorded Confirmed Last Taken amlodipine 5 mg PO QAM 12/16/18 12/16/18 12/15/18 hydrochlorothiazide 25 mg PO QAM 12/16/18 12/16/18 12/15/18 naproxen sodium [Aleve] 220 mg PO QAM 12/16/18 12/16/18 12/15/18 NPO Date Last Intake of Fluids: 12/16/18 Time Last Intake of Fluids: 07:00 Date Last Intake of Solids: 12/16/18 Time Last Intake of Solids: 07:00 Past Medical History Medical History History of pancreatitis Hypertension Past Surgical History Surgical History H/O repair of left rotator cuff History of left knee replacement Social History Smoking Status: Never smoker Do You Dip or Chew Tobacco: No Hx Alcohol Use: No Hx Substance Use: No substance use type: does not use Physical Exam Vital Signs Last Vital Signs Temp 36.5 C 12/16/18 13:10 Pulse 51 L 12/16/18 13:10 Resp 15 12/16/18 13:10 BP 167/93 H 12/16/18 13:10 Pulse Ox 97 12/16/18 13:10 Testing Laboratory Results 12/16/18 12:37 12/16/18 12:37 PT 11.1 Seconds (9.0-12.0) 12/16/18 12:37 INR 1.1 (0.9-1.1) 12/16/18 12:37 Blood Type O Positive 12/16/18 12:37 Antibody Screen NEGATIVE 12/16/18 12:37
[2018-12-16] MEDS ORDERED: ATROPINE SULFATE 0.1 MG/ML 10ML SYR IV PRN (14:35)
[2018-12-16] MEDS ORDERED: ePHEDrine sulfate 50 MG/ML AMP IV PRN (14:35)
[2018-12-16] MEDS ORDERED: fentaNYL citrate 100 MCG/2 ML VIAL IV PRN (14:35)
[2018-12-16] MEDS ORDERED: HYDROmorphone INJ 2 MG/ML SYR/VIAL IV PRN (14:35)
[2018-12-16] MEDS ORDERED: MIDAZOLAM HCL 1 MG/ML 2ML VIAL ONE (14:41)
--- NOTE | 2018-12-16 14:41 | History & Physical Bridge Note ---
Date of Service December 16, 2018 History & Physical Bridge Note I have examined the patient, reviewed the History & Physical and in the interval since the performance of the History & Physical I have noted the following changes of clinical significance: no changes noted
[2018-12-16] MEDS ORDERED: PROPOFOL IV EMULSION 10 MG/ML 20 ML VIAL IV ONE (14:42)
[2018-12-16] MEDS ORDERED: ONDANSETRON INJ 2 MG/ML 2 ML VIAL ONE (14:42)
--- NOTE | 2018-12-16 14:43 | Orthopedic Progress Note ---
Date of Service December 16, 2018 Assessment & Plan (1) Left knee dislocation: I have indicated the patient for closed reduction of his left total knee. The risk benefits and complications as well as alternatives of the procedure were expanded the patient in detail which include however not limited to injury to nerves, bone, vessels, soft tissue, chronic pain, arthrofibrosis, compartment syndrome, loss of limb, loss of life, need for repeat reduction secondary to recurrent instability, need for revision total knee. Patient agreed to proceed with closed reduction at this time and informed consent was obtained. Subjective Patient seen in preoperative holding, comfortable, pain well controlled, no acute issues, n.p.o. for closed reduction left total knee. Review of Systems Review of Systems: All systems reviewed & are unremarkable except as noted in HPI & below Constitutional: as per Subjective / HPI Physical Exam Physical Exam: LLE NVSI +EHL/FHL/TA/GS SILT grossly, +2 DP pulse, compartments soft NT, knee flexed, obvious deformity, skin clean dry and intact Constitutional: WD/WN, vitals as above Results & Data Vital Signs (Past 12 Hours) Vital Signs Temp Pulse Pulse Resp BP BP Pulse Ox 12/16/18 14:37 36.7 C 65 20 168/87 H 97 12/16/18 13:10 36.5 C 51 L 15 167/93 H 97 12/16/18 11:40 59 L 20 165/88 H 97 12/16/18 10:32 56 L 20 140/91 97 12/16/18 08:11 36.8 C 63 18 181/94 H 98
[2018-12-16] MEDS ORDERED: LIDOCAINE HCL 2% 2 ML VIAL/AMP(20MG/ML) INFIL ONE (15:06)
--- NOTE | 2018-12-16 15:10 | Post Operative Brief Note ---
Immediate Post Op Note v1 Date of Surgery December 16, 2018 Pre & Post Diagnosis Operation Date: 12/16/18 15:40 <No data on this case meets the specified criteria> Dislocation left total knee Dislocation left total knee Procedure Operation Date: 12/16/18 15:40 <No data on this case meets the specified criteria> closed reduction left total knee Surgeon Luis Chew DO Relations Manager none Estimated Blood Loss 0 Findings Consistent with Post-Op Diagnosis Anesthesia Type General Complications none Disposition Disposition: Recovery Room Overlapping Procedure I was present for: the critical portions of procedure. I was immediately available: during the entire case. Back up surgeon: was not required during procedure.
--- NOTE | 2018-12-16 15:20 | Anesthesiology Progress Note ---
Date of Service December 16, 2018 Anesthesia Post Procedure Vital Signs Vital Signs: Temp Pulse Pulse Resp BP BP Pulse Ox 12/16/18 14:37 36.7 C 65 20 168/87 H 97 12/16/18 13:10 36.5 C 51 L 15 167/93 H 97 12/16/18 11:40 59 L 20 165/88 H 97 12/16/18 10:32 56 L 20 140/91 97 12/16/18 08:11 36.8 C 63 18 181/94 H 98 Pain Intensity Left Knee: Pain Intensity: 4 Transfer of Care Handoff Completed per policy Notes Mental Status: alert / awake / arousable and participated in evaluation Patient Amnestic to Procedure: Yes Nausea / Vomiting: adequately controlled Pain: adequately controlled Airway Patency, RR, SpO2: stable & adequate BP & HR: stable & adequate Hydration State: stable & adequate Anesthetic Complications: no major complications apparent
--- NOTE | 2018-12-16 15:25 | Fluoroscopy Report ---
FL knee LT 1 or 2V CLINICAL HISTORY: CLOSED REDUCTION LEFT TOTAL KNEE COMPARISON STUDY: Left knee 12/16/2018. FLUOROSCOPY TIME: 4 seconds. FINDINGS: 2 fluoroscopic spot images of the left knee status post left knee reduction. Alignment is a natomic. There is a left total knee arthroplasty. The hardware appears intact. No fracture or disloca tion. IMPRESSION: Fluoroscopy provided for reduction of the left knee. Electronically signed by: Honorio Perez M.D. 12/16/2018 3:23 PM
--- NOTE | 2018-12-16 15:48 | XRay Report ---
XR knee LT 2V routine CLINICAL HISTORY: 68 years-old Male presenting with post reduction, PACU. TECHNIQUE: Frontal and crosstable lateral views of the left knee were obtained. COMPARISON: 12/16/2018. FINDINGS: Total left knee arthroplasty. There has been successful reduction of the posterior subluxation of the tibia relative to the femoral component. Minimal lucency subjacent to the anterior tibial component is likely within the range of normal. No periprosthetic fracture. No residual malalignment. A knee nuvia int effusion cannot be excluded. IMPRESSION: Successful reduction of the posterior subluxation. No periprosthetic fracture at the total left knee arthroplasty. Electronically signed by: Eduardo Rutledge M.D. 12/16/2018 3:46 PM
[2018-12-16] MEDS ORDERED: MAGNESIUM HYDROXIDE SUSP 30 ML UDC PO PRN (16:13)
[2018-12-16] MEDS ORDERED: BISACODYL 10 MG SUPP PR PRN (16:13)
[2018-12-16] MEDS ORDERED: NALOXONE HCL 0.4 MG/1 ML VIAL/CARP IV PRN (16:13)
[2018-12-16] MEDS ORDERED: OXYCODONE HCL IR 5 MG TAB (IMMEDIATE RELEASE) PO PRN (16:13)
[2018-12-16] MEDS ORDERED: METOCLOPRAMIDE HCL INJ 5 MG/ML 2 ML VIAL IV PRN (16:13)
[2018-12-16] MEDS: hydroCHLOROthiazide 25 MG TAB PO SCH (17:06)
[2018-12-16] MEDS: AMLODIPINE BESYLATE 5 MG TAB PO SCH (17:06)
--- NOTE | 2018-12-16 17:57 | Ultrasound Report ---
US ankle/brachial index ltd CLINICAL HISTORY: LLE, left knee dislocation s/p reduction. Left leg pain. COMPARISON STUDY: None. FINDINGS: The bilateral ankle brachial indices measured with the posterior tibial and dorsalis pedis arteries is 1.2. IMPRESSION: Normal bilateral brachial indices at 1.2. Electronically signed by: Honorio Perez M.D. 12/16/2018 5:56 PM
[2018-12-16] MEDS: SODIUM CHLORIDE 0.9% 1000ML 1,000 ML IV SCH (18:11)
--- NOTE | 2018-12-16 18:53 | Orthopedic Progress Note ---
Date of Service December 16, 2018 Assessment & Plan (1) Left knee dislocation: s/p closed reduction left TKA -WBAT LLE -SCDs -WBAT LLE -PT/OT -Maintain KI at all times -PO XR demonstrates a well aligned well fixed prothesis without fracture/dislocation -am labs -DIANA 1.2 -DC planning home Subjective Post Operative Progress Note Patient seen in PACU, comfortable, denies complaints, pain well controlled, no acute issues. Review of Systems Review of Systems: All systems reviewed & are unremarkable except as noted in HPI & below Constitutional: as per Subjective / HPI Physical Exam Physical Exam: LLE NVSI +EHL/FHL/TA/GS SILT grossly, +2 DP pulse, compartments soft NT, dressing cdi. Constitutional: WD/WN, vitals as above Results & Data Vital Signs (Past 12 Hours) Vital Signs Temp Pulse Pulse Pulse Resp BP BP 12/16/18 18:11 37.0 C 61 20 12/16/18 17:10 36.4 C L 83 18 169/109 H 12/16/18 16:39 73 18 12/16/18 16:14 36.5 C 51 L 20 12/16/18 15:55 36.9 C 65 19 150/90 H 12/16/18 15:45 71 25 H 146/89 H 12/16/18 15:35 54 L 21 130/83 12/16/18 15:25 59 L 13 133/82 12/16/18 15:17 36.6 C 74 17 123/81 12/16/18 14:37 36.7 C 65 20 168/87 H 12/16/18 13:10 36.5 C 51 L 15 167/93 H 12/16/18 11:40 59 L 20 165/88 H 12/16/18 10:32 56 L 20 140/91 12/16/18 08:11 36.8 C 63 18 181/94 H BP Pulse Ox 12/16/18 18:11 147/84 H 94 12/16/18 17:10 93 12/16/18 16:39 175/90 H 96 12/16/18 16:14 163/87 H 98 12/16/18 15:55 95 12/16/18 15:45 98 12/16/18 15:35 100 12/16/18 15:25 99 12/16/18 15:17 97 12/16/18 14:37 97 12/16/18 13:10 97 12/16/18 11:40 97 12/16/18 10:32 97 12/16/18 08:11 98
[2018-12-16] MEDS ORDERED: SENNA 8.6 MG TAB PO SCH (21:00)
[2018-12-16] MEDS: ACETAMINOPHEN 500 MG TAB PO SCH (21:40)
[2018-12-16] MEDS: DOCUSATE SODIUM 100 MG CAP PO SCH (21:42)
[2018-12-16] MEDS ORDERED: TRAMADOL HCL 50 MG TABLET PO PRN (22:54)
--- NOTE | 2018-12-16 22:57 | Operative Report ---
Post Operative Report Pre & Post Diagnosis Operation Date: 12/16/18 15:40 Pre-Op Diagnosis: Left total knee arthroplasty dislocation. Post-Op Diagnosis: Left total knee arthroplasty dislocation. Procedure Operation Date: 12/16/18 15:40 Actual Procedures p Left Closed Reduction Total Knee Arthroplasty(Left) - Luis Chew DO Surgeon Luis Chew DO Online Marketing Coordinator none Estimated Blood Loss 0 Findings Consistent with Post-Op Diagnosis Specimens none Anesthesia Type General Complications none Disposition Disposition: Recovery Room Indications The patient is a 68 year old male with PMHx for left total knee performed 04/[address] Faust. This morning while getting out of bed, he straightened his left knee and immediately felt a pop in his knee, pain and inability to ambulate or range his knee. He was see at [facility] ED and diagnosed with disloc ation of his left total knee. He was subsequently admitted for further observation and intervention. I have indicated the patient for closed reduction of left total knee. The risk benefits and complications as well as alternatives of the procedure were expanded the patient in detail which include however not limited to injury to nerves, bone, vessels, soft tissue, chronic pain, arthrofibrosis, compartment syndrome, loss of limb, loss of life, need for repeat reduction secondary to recurrent instability, need for revision total knee. Patient agreed to proceed with closed reduction at this time and informed consent was obtained. Description of Procedure Upon arrival to the operating room the patient was transferred to the OR table. Following the application of adequate general anesthesia a time out was performed, patient identified and site annalise verified. Gentle flexion, traction, anterior drawer and extension was applied to the left total knee, a appreciable clunk was felt. Utilizing C arm fluoroscopy x-rays taken which demonstrate relocated total knee prosthesis without fracture or persistent dislocation. The knee was gently taken through full range of motion and was found to be stable. We then placed the left lower extremity into a knee immobilizer. The patient was extubated in the operating room and transferred to the PACU in stable condition. They tolerated the procedure well. I attest to the content of the Intraoperative Record and any orders documented therein. Any exceptions are noted below.
[2018-12-17] MEDS: SODIUM CHLORIDE 0.9% 1000ML 1,000 ML IV SCH (03:27)
[2018-12-17] MEDS: ACETAMINOPHEN 500 MG TAB PO SCH (05:25)
--- NOTE | 2018-12-17 07:33 | Orthopedic Progress Note ---
Date of Service December 17, 2018 Assessment & Plan (1) Left knee dislocation: s/p closed reduction left TKA POD#1 -WBAT LLE -SCDs -WBAT LLE -PT/OT -Maintain KI at all times -PO XR demonstrates a well aligned well fixed prothesis without fracture/dislocation -am labs - hgb 13.8 -DIANA 1.2 -DC planning home Subjective Post Operative Progress Note Patient seen ambulating in room, comfortable, denies complaints, pain well controlled, no acute issues. Review of Systems Review of Systems: All systems reviewed & are unremarkable except as noted in HPI & below Constitutional: as per Subjective / HPI Physical Exam Physical Exam: LLE NVSI +EHL/FHL/TA/GS SILT grossly, +2 DP pulse, compartments soft NT, dressing cdi. KI in place Constitutional: WD/WN, vitals as above Results & Data Vital Signs (Past 12 Hours) Vital Signs Temp Pulse Resp BP Pulse Ox 12/17/18 04:46 36.6 C 53 L 16 121/68 97 12/16/18 23:09 36.6 C 67 16 119/64 96
[2018-12-17] MEDS: DOCUSATE SODIUM 100 MG CAP PO SCH (08:35)
[2018-12-17] MEDS: hydroCHLOROthiazide 25 MG TAB PO SCH (08:35)
[2018-12-17] MEDS: AMLODIPINE BESYLATE 5 MG TAB PO SCH (08:36)
[2018-12-17 08:39] LABS: Hematocrit (blood only) 38.9 % (42-52); Hemoglobin 13.5 g/dL (14.0-18.0); Mean Corpuscular Hgb Conc 34.7 g/dL (32-36); Mean Corpuscular Volume 92.8 fL (80-100); Mean Platelet Volume 9.6 fL (7.4-10.4); Platelet Count 206 K/uL (130-400); RDW Coefficient of Variation 13.8 % (11.5-14.5); RDW Standard Deviation 46.5 fL (36.4-46.3); Red Blood Count 4.19 M/uL (4.7-6.1); White Blood Count 5.68 K/uL (4.8-10.8)
[2018-12-17] MEDS ORDERED: MULTIVITAMIN TAB PO SCH (09:00)
[2018-12-17] MEDS ORDERED: NAPROXEN 250 MG TAB PO SCH (09:00)
[2018-12-17 09:20] LABS: BUN Creatinine Ratio 21.1 (10-20); Calcium 9.5 mg/dl (8.5-10.1); Creatinine Clr Calc Pharmacy 93.3 ml/min; Est GFR (African American) 93.6; Est GFR (Non-African American) 80.8; Potassium 3.7 mmol/L (3.5-5.1)
--- NOTE | 2018-12-17 14:35 | Anesthesiology Progress Note ---
Date of Service December 17, 2018 Anesthesia Post Procedure Vital Signs Vital Signs: Temp Pulse Pulse Pulse Resp BP BP 12/17/18 08:50 36.9 C 56 L 61 53 L 18 169/109 H 144/80 H 12/17/18 07:30 36.9 C 56 L 18 144/80 H 12/17/18 04:46 36.6 C 53 L 16 121/68 12/16/18 23:09 36.6 C 67 16 119/64 12/16/18 19:10 36.5 C 72 17 163/88 H 12/16/18 18:11 37.0 C 61 20 147/84 H 12/16/18 17:10 36.4 C L 83 18 169/109 H 12/16/18 16:39 73 18 175/90 H 12/16/18 16:14 36.5 C 51 L 20 163/87 H 12/16/18 15:55 36.9 C 65 19 150/90 H 12/16/18 15:45 71 25 H 146/89 H 12/16/18 15:35 54 L 21 130/83 12/16/18 15:25 59 L 13 133/82 12/16/18 15:17 36.6 C 74 17 123/81 12/16/18 14:37 36.7 C 65 20 168/87 H Pulse Ox 12/17/18 08:50 94 12/17/18 07:30 94 12/17/18 04:46 97 12/16/18 23:09 96 12/16/18 19:10 93 12/16/18 18:11 94 12/16/18 17:10 93 12/16/18 16:39 96 12/16/18 16:14 98 12/16/18 15:55 95 12/16/18 15:45 98 12/16/18 15:35 100 12/16/18 15:25 99 12/16/18 15:17 97 12/16/18 14:37 97 Pain Intensity Left Knee: Pain Intensity: 0 Notes Mental Status: alert / awake / arousable Patient Amnestic to Procedure: Yes Nausea / Vomiting: adequately controlled Pain: adequately controlled Airway Patency, RR, SpO2: stable & adequate BP & HR: stable & adequate Hydration State: stable & adequate Anesthetic Complications: no major complications apparent and Pt Satisfied with anesthetic care
--- NOTE | 2018-12-19 15:10 | Discharge Summary ---
Date of Service December 19, 2018 Principal Diagnosis closed reduction left total knee Discharge Exam LLE NVSI +EHL/FHL/TA/GS SILT grossly, +2 DP pulse, compartments soft NT. Constitutional WD/WN, vitals as above Discharge Data Allergies Allergy/AdvReac Type Severity Reaction Status Date / Time No Known Drug Allergies Allergy Unknown NKDA Verified 12/16/18 08:39 Consultations 12/16/18 11:33 ED Decision to Admit Stat 12/16/18 16:13 Consult Case Management - Discharge Planning Routine Procedures Performed Operation Date: 12/16/18 15:40 Actual Procedures p Left Closed Reduction Total Knee Arthroplasty(Left) - Luis Chew DO Ordered Studies 12/16/18 FL fluoroscopy <1hr Routine FL knee LT 1 or 2V Routine 12/16/18 16:54 US ankle/brachial index ltd Urgent Hospital Course (1) Left knee dislocation: The patient is a 68 -year-old male who presented after sustaining a atraumatic dislocation of their left total knee. I indicated the patient for a closed reduction of their total knee, the risks, benefits and complications of the procedure include but not limited to, damage to bone, nerves, vessels, surrounding soft tissue, may develop blood clots, loss of function,chonic pain, recurrent instability and dislocation, failure of the components, loosening of the components, the need for additional surgery, loss of limb and loss of life. The patient wished to proceed with closed reduction at this time and informed consent was obtained. Hospital Course: On 12/16/18 the patient was taken to the operating room, adequate anesthesia administered and underwent a closed reduction left total knee. The patient tolerated the procedure well and was taken to the PACU in stable condition. DIANA's were obtained and found to be 1.2. On POD#1, the patient did well overnight and their pain was well controlled. Labs were drawn and the Hgb was 13.8. The patients hospital stay was relatively uneventful and they were deemed stable by the orthopedic team and consultants to be discharged home on 12/17/18. Discharge Instructions: Upon discharge the patient may weight bear as tolerates through their operative extremity while in knee immobilizer. The patient was given a script for pain medication and should take as instructed. The patient was encouraged to ambulate as much as they tolerate. If the patient develops any symptoms of fevers, chills, nausea, vomiting, increased redness, swelling, pain, they should notify the office and/or proceed to the nearest emergency room. The patient should follow up in 7 days after surgery for their routine post-operative follow-up appointment and should call the office to confirm the date and time. s/p closed reduction left TKA POD#1 -WBAT LLE -SCDs -WBAT LLE -PT/OT -Maintain KI at all times -PO XR demonstrates a well aligned well fixed prothesis without fracture/dislocation -am labs - hgb 13.8 -DIANA 1.2 -DC planning home Total Time Total Time Spent Total Time Spent (In Minutes): 30 minutes Total Time Includes: Examination of the Patient, Discharge Planning, Medication Reconciliation and Communication With Other Providers Discharge Plan Discharge Items Patient Disposition: Home - Self-Care Reason For Visit: LEFT TKA DISLOCATION Discharge Diagnosis: Closed reduction left total knee Condition: Good Discharge Goals: Decrease discomfort, Improve function, Increase independence and Therapeutic intervention Activity: Per 'Additional Instructions' section Lifting: Wait until after follow-up appointment Bathing: No limitations Sexual Activity: Wait until after follow-up appointment Exercise/Sports: Wait until after follow-up appointment Driving/Machine Use Comment: Do not drive till cleared by your surgeon Weightbearing: Left weightbearing Non-emergency contact: Primary Care Provider and Surgeon Call non-emergency contact if: you have any medication questions, your symptoms worsen, your pain is not controlled, your pain is worsening, your pain is unusual for you, your pain is concerning for you, you have a fever and your temperature is above 101 Follow-up/Referrals: Yola Garcia MD [Primary Care Provider] - Diet: Regular Addtl Provider Instructions: ACTIVITY RECOMMENDATIONS: SELF CARE INSTRUCTIONS AFTER CLOSED REDUCTION TOTAL KNEE REPLACEMENT A. Avoid bending your knee until your follow up appointment with your surgeon B. You may ambulate as much as your tolerate, maintain knee immobilizer at all times, use assistive devices such as a walker or cane C. Make walking a part of your daily routine. Be up as much as comfortable with rest periods throughout the day. Rest with leg elevation is very important. Use the ice wrap frequently for the first 3-4 weeks. D. There are no restrictions on activities. You may ride in a car, shop, participate in poultry offal worker and all social activities. SPECIAL CARE INSTRUCTIONS: VERY IMPORTANT TO READ AND REVIEW A. There are a few signs you need to watch for after you are home. Call [facility] if you notice any of the followin. Increased severe knee pain. Some pain is expected especially when you exercise. 2. Increased swelling in your leg or knee; pain or swelling of the calf muscle in either lower leg. 3. Any fluid drainage from the incision. 4. Shortness of breath or chest pain. B. Please call [facility] at if you have any concerns or questions about your operation or recovery. The doctor or his nurse will return your call promptly. FOLLOW UP VISIT: If appointment is not already scheduled: Please call [facility] to make a follow-up appointment for 1 week after your surgery at . Prescriptions: New acetaminophen [Tylenol Extra Strength] 500 mg Tablet 1,000 mg PO Q8 PRN (Reason: pain) Qty: 90 RF: 0 tramadol 50 mg tablet 50 mg PO Q6H PRN (Reason: pain) Qty: 30 RF: 0 Continued amlodipine 5 mg tablet 5 mg PO QAM RF: 0 naproxen sodium [Aleve] 220 mg Tablet 220 mg PO QAM RF: 0 hydrochlorothiazide 25 mg tablet 25 mg PO QAM RF: 0 Stand-Alone Forms: [facility], [facility] Discharge Orders: Discharge Order (Routine); Ordered 12/17/18 Ordered By: Luis Chew Admission Data Admit Date/Time: 12/16/18 11:38 Attending Provider: Luis Chew Admit Provider: Luis Chew Primary Care Provider: Yola Garcia Other Providers: Luis Chew Service: Surgical Services Other Interventions: Discharge Summary Assessment (RN) Last Done: 12/17/18 08:50 DC Date/Time DO NOT enter until pt leaves facility: 12/17/18 11:08
== END 2018-12-17 11:08 | disposition home or self-care (01) | DRG 489 ==
LOC: ED 08:06 → 3W 11:38

== ENCOUNTER 2019-06-06 08:26 | Inpatient (IN) ==
--- NOTE | 2019-05-18 12:12 | PAT Medication Instructions ---
Medication Instructions Date of Service May 18, 2019 Home Medications Medication Instructions Recorded acetaminophen [Tylenol Extra 1,000 mg PO Q8 PRN #90 tab 12/16/18 Strength] acetaminophen [Tylenol Extra Strength] 1,000 mg PO Q8 PRN amlodipine 5 mg PO QAM hydrochlorothiazide 25 mg PO QAM naproxen sodium [Aleve] 220 mg PO QAM rosuvastatin 20 mg PO QAM ASK your surgeon for instructions naproxen sodium [Aleve] 220 mg PO QAM DO NOT take the morning of surgery hydrochlorothiazide 25 mg PO QAM Take morning of surgery With a small sip of water, OTHERWISE NOTHING TO EAT OR DRINK AFTER MIDNIGHT: acetaminophen [Tylenol Extra Strength] 1,000 mg PO Q8 PRN (if needed, may be taken up to four hours before surgery) amlodipine 5 mg PO QAM rosuvastatin 20 mg PO QAM Other Notes If you have any questions please call us at [phone] or [phone] or [phone] or [phone]
--- NOTE | 2019-05-19 11:15 | Anesthesiology Consultation ---
Date of Service May 19, 2019 Assessment & Plan (1) Encounter for pre-operative examination: PCP clearance 06/02/2019: No known contraindications to upcoming left knee orthopedic repair. Chart Review Chart Review: Acceptable Risk for Surgery and Patient seen in Pre Admission Testing Teaching & Discussion Instructed NPO after midnight before surgery, except medications with 15 cc of water. Medication instructions provided according to the PAT guidelines. History Surgery Operation Date: 06/06/19 11:10 Proposed Procedures p Left Total Knee Revision, Poly Swap, Possible Tibia/Femur - Luis Chew DO Height/Weight Height: 5 ft 11 in Weight: 120.2 kg Allergies Allergy/AdvReac Type Severity Reaction Status Date / Time No Known Drug Allergies Allergy Unknown NKDA Verified 05/11/19 08:57 Medications Home Medications Medication Instructions Recorded Confirmed Last Taken acetaminophen [Tylenol Extra 1,000 mg PO Q8 PRN #90 tab 12/16/18 05/11/19 Unknown Strength] amlodipine 5 mg PO QAM 12/16/18 05/11/19 12/15/18 hydrochlorothiazide 25 mg PO QAM 12/16/18 05/11/19 12/15/18 naproxen sodium [Aleve] 220 mg PO QAM 12/16/18 05/11/19 12/15/18 rosuvastatin 20 mg PO QAM 05/11/19 05/11/19 Unknown Past Medical History Medical History Diabetes type 2, controlled A1C noted to be 6.8% on pre-op testing with no known hx. Labs sent to [facility] for their review. History of kidney stones History of pancreatitis Hyperlipidemia Hypertension Osteoarthritis Exercise / Class Metabolic Activity II 4-5 Yardwork/Stairs/Walk up hill (denies CP or SOB with 1 FOS) Past Family History Family History Grandmother (Maternal) Family hx of colon cancer Past Surgical History Surgical History H/O repair of left rotator cuff History of left knee replacement History of left knee surgery Left Closed reduction TKA (2/2 dislocation): 12/16/18: LMA#5 at [facility] History of total right knee replacement Hx of colonoscopy Past Anesthesia History No Hx of Anesthesia Complications and No Family Hx of Anesthesia Complications History of PONV No Hx of PONV and No Hx of Motion Sickness Social History Smoking Status: Never smoker Do You Dip or Chew Tobacco: No Hx Alcohol Use: No Hx Substance Use: No substance use type: does not use Review of Systems Pt denies any recent chest pain, shortness of breath, palpitations, cough, fever or URI. Physical Exam Vital Signs BP: 155/88 (pt reports this is high for him) P: 66bpm SPO2: 96% RA T: 98.0 F R: 16 Constitutional + obese ENMT Mouth: no dental restorations, no chipped teeth and no loose teeth Thyromental Distance: > or= 3.5 Finger Breadths (4) Mallampati Class: I Neck + thick neck; neck extension not limited Respiratory normal respiratory effort Auscultation: lungs clear to auscultation bilaterally Cardiovascular Rate/Rhythm: regular rate and regular rhythm Heart Sounds: no murmur Vessels: no carotid bruit Testing Laboratory Results 05/19/19 11:28 05/19/19 11:28 PT 11.4 Seconds (9.0-12.0) 05/19/19 11:28 INR 1.1 (0.9-1.1) 05/19/19 11:28 APTT 25.7 Seconds (21.0-31.0) 05/19/19 11:28 Hemoglobin A1c 6.8 % (4.5-5.6) H 05/19/19 11:28 Urine Color Yellow 05/19/19 Unknown Urine Appearance Cloudy (Clear) A 05/19/19 Unknown Urine pH 7.5 (4.5-7.5) 05/19/19 Unknown Ur Specific [place] 1.023 (1.000-1.030) 05/19/19 Unknown Urine Protein Negative (Negative) 05/19/19 Unknown Urine Glucose (UA) 3+ (Negative) H 05/19/19 Unknown Urine Ketones Negative (Negative) 05/19/19 Unknown Urine Nitrite Negative (Negative) 05/19/19 Unknown Ur Leukocyte Esterase Negative (Negative) 05/19/19 Unknown Urine WBC (Auto) 0 /hpf (0-5) 05/19/19 Unknown Urine RBC (Auto) 0-4 /hpf (0-4) 05/19/19 Unknown U Hyaline Cast (Auto) 0 /lpf (0-5) 05/19/19 Unknown U Epithel Cells (Auto) 0-5 /lpf (0-5) 05/19/19 Unknown Urine Bacteria (Auto) Negative (Negative) 05/19/19 Unknown Blood Type O Positive 05/19/19 11:28 Antibody Screen NEGATIVE 05/19/19 11:28 *No h/o DM, A1C 6.8%. Labs faxed to PCP for their review prior to surgery. Electrocardiogram Date: 12/16/18 Findings: + SB @ (57bpm) Chest X-Ray Date: 12/16/18 Findings: + NAD
[2019-05-19 11:52] LABS: Basophils # (auto) 0.03 K/uL (0-0.2); Basophils % (auto) 0.6 %; Eosinophils # (auto) 0.23 K/uL (0-0.5); Eosinophils % (auto) 4.3 %; Immature Granulocytes # (auto) 0.01 K/uL (0.00-0.02); Immature Granulocytes % (auto) 0.2 %; Lymphocytes # (auto) 2.06 K/uL (1.2-3.4); Lymphocytes % (auto) 38.9 %; Mean Corpuscular Hemoglobin 32.1 pg (25-34); Mean Corpuscular Volume 91.7 fL (80-100); Mean Platelet Volume 9.8 fL (7.4-10.4); Monocytes # (auto) 0.58 K/uL (0.11-0.59); Monocytes % (auto) 10.9 %; Neutrophils # (auto) 2.39 K/uL (1.4-6.5); Neutrophils % (auto) 45.1 %; Platelet Count 188 K/uL (130-400); RDW Coefficient of Variation 13.5 % (11.5-14.5); RDW Standard Deviation 45.4 fL (36.4-46.3); Red Blood Count 4.36 M/uL (4.7-6.1)
[2019-05-19 11:55] LABS: Appearance Urine Cloudy (Clear); Bacteria Urine Automated Negative (Negative); Bilirubin Urine Negative (Negative); Blood Urine Negative (Negative); Cast Urine Automated 0 /lpf (0-5); Color Urine Yellow; Epithelial Cell Urine Auto 0-5 /lpf (0-5); Glucose Urine UA 3+ (Negative); Ketones Urine Negative (Negative); Leukocyte Esterase Urine Negative (Negative); Nitrite Urine Negative (Negative); Protein Urine Negative (Negative); RBC Urine Automated 0-4 /hpf (0-4); Specific Gravity Urine 1.023 (1.000-1.030); Urobilinogen Urine Negative (Negative); WBC Urine Automated 0 /hpf (0-5); pH Urine 7.5 (4.5-7.5)
[2019-05-19 12:06] LABS: INR 1.1 (0.9-1.1); Partial Thromboplastin Ratio 0.9; Partial Thromboplastin Time 25.7 Seconds (21.0-31.0); Prothrombin Time 11.4 Seconds (9.0-12.0)
[2019-05-19 12:41] LABS: Estimated Average Glucose 148 mg/dl; Hemoglobin A1C 6.8 % (4.5-5.6)
[2019-05-19 13:16] LABS: Albumin Level 3.9 gm/dl (3.4-5.0); Calcium 9.1 mg/dl (8.5-10.1); Creatinine Clr Calc Pharmacy 94.6 ml/min; Est GFR (African American) 94.8; Est GFR (Non-African American) 81.8; Potassium 3.5 mmol/L (3.5-5.1)
--- NOTE | 2019-06-05 12:23 | History & Physical Report ---
Date of Service June 05, 2019 Assessment & Plan (1) Failed total left knee replacement: I have indicated the patient for revision left total knee replacement, poly exchange. The risks, benefits and complications of surgery were explained to the patient which include but not limited to infection, acute blood loss, DVT/PE, injury to nerves, vessels, bone, soft tissue, arthrofibrosis, chronic pain, failure of the prosthesis, knee dislocation, leg length discrepancy, need for additional surgery, cardiac and pulmonary events and . The patient wished to proceed with surgery and informed consent was obtained at this time. We will plan for Xarelto or Lovenox post-operatively for DVT prophylaxis due to history of GI bleed on NSAIDs. Upon discharge the patient will be discharged home with home health services. Appropriate clearances by PCP were obtained. History of Present Illness Chief Complaint: Failed left total knee arthroplasty, instability Primary Care Provider: Yola Garcia MD The patient is a 68 year old male who presents with complaints of chronic instability of left total knee with history for dislocation which required closed reduction on 12/16/18. The patient has failed outpatient conservative treatments to this point which included NSAIDs, bracing, PT/home exercise/walking program. The patient's pain and limited function have progressed to the point where they severely hinder their activities of daily living and they no longer tolerate exercise programs. They are requesting to proceed with revision total knee replacement surgery. Allergies Allergy/AdvReac Type Severity Reaction Status Date / Time No Known Drug Allergies Allergy Unknown NKDA Verified 06/06/19 09:07 Home Medications Home Medications Medication Instructions Recorded Confirmed Type acetaminophen [Tylenol Extra 1,000 mg PO Q8 PRN #90 tab 12/16/18 06/06/19 Rx Strength] amlodipine 5 mg PO QAM 12/16/18 06/06/19 History hydrochlorothiazide 25 mg PO QAM 12/16/18 06/06/19 History naproxen sodium [Aleve] 220 mg PO QAM 12/16/18 05/11/19 History rosuvastatin 20 mg PO QAM 05/11/19 06/06/19 History Past Med/Surg History Medical History Diabetes type 2, controlled A1C noted to be 6.8% on pre-op testing with no known hx. Labs sent to [facility] for their review. History of kidney stones History of pancreatitis Hyperlipidemia Hypertension Osteoarthritis Surgical History H/O repair of left rotator cuff History of left knee replacement History of left knee surgery Left Closed reduction TKA (2/2 dislocation): 12/16/18: LMA#5 at [facility] History of total right knee replacement Hx of colonoscopy Family History Grandmother (Maternal) Family hx of colon cancer Social History Preferred Language: Albanian Communication Ability: Effective Premix Operator Concentrate Required: No Beliefs That Will Affect Care: None marital status: Current Living Situation: Spouse Feels Safe at Home: Yes Safety Concerns: Feels Safe At This Time Smoking Status: Never smoker Do You Dip or Chew Tobacco: No ; Second Hand Exposure: No ; Hx Alcohol Use: No Hx Substance Use: No Review of Systems Review of Systems: All systems reviewed & are unremarkable except as noted in HPI & below Constitutional: as per Subjective / HPI Physical Exam Physical Exam: LLE NVSI +EHL/FHL/TA/GS SILT grossly, +2 DP pulse, compartments soft NT, incision cdi, limited ROM 0-110 degrees of flexion. Constitutional: WD/WN, vitals as above Eyes: PERRL, conjunctivae normal, anicteric sclerae ENMT: external ear and nose normal, oropharynx normal Neck: trachea midline, no thyromegaly Respiratory: normal respiratory effort, lungs clear to auscultation Cardiovascular: RRR, no murmur, no edema Gastrointestinal (Abdomen): normal bowel sounds, soft, nontender, no hepatosplenomegaly Musculoskeletal: no cyanosis or clubbing, extremities motor strength 5/5 Skin: no rashes, warm and dry Neurologic: patellar DTR's 2+ bilat, sensation intact Psychiatric: A+Ox3, euthymic affect Lymphatic: no cervical or axillary lymphadenopathy Results & Data Diagnostic Findings Multiple views of the left knee demonstrates a well aligned, well fixed total knee prosthesis without evidence of loosening, subsidence, fracture or dislocation.
[~2019-06-06 08:26] MED LIST changes: +ACETAMINOPHEN 500 MG TAB PO SCH; +BUPIVACAINE 0.5 % 5 MG/1 ML PF 10ML VIAL ONE; -CEFAZOLIN 2000MG 2,000 MG/15 ML SYR IV SCH; +CEFAZOLIN 3000MG 72.5 ML IV SCH; +CeleBREX 200 MG CAP PO SCH; +FAMOTIDINE 20 MG TAB PO SCH; +GABAPENTIN 300 MG CAP PO SCH; +LR 500ML BOLUS, THEN 15ML/HR IV SCH; +METOCLOPRAMIDE HCL 10 MG TABLET PO SCH; +ROPIVACAINE 0.5% HCL/PF 150 MG, BUPIVACAINE 0.5% MPF 30 ML, EPINEPHrine 30MG/30ML (OR U... INSTIL SCH; +TRANEXAMIC ACID 1,000 MG **IV Intra-op IV SCH; +TRANEXAMIC ACID 1,000 MG **IV Pre-op IV SCH; +dexAMETHasone 4 MG TAB PO SCH
[2019-06-06] MEDS ORDERED: PROPOFOL IV EMULSION 10 MG/ML 20 ML VIAL IV ONE ×2 (09:30→12:46)
[2019-06-06] MEDS ORDERED: LIDOCAINE HCL 2% 2 ML VIAL/AMP(20MG/ML) INFIL ONE (09:30)
[2019-06-06] MEDS ORDERED: ONDANSETRON INJ 2 MG/ML 2 ML VIAL ONE (09:30)
[2019-06-06] MEDS ORDERED: MIDAZOLAM HCL 1 MG/ML 2ML VIAL ONE ×2 (09:31)
--- NOTE | 2019-06-06 09:34 | History & Physical Bridge Note ---
Date of Service June 06, 2019 History & Physical Bridge Note I have examined the patient, reviewed the History & Physical and in the interval since the performance of the History & Physical I have noted the following changes of clinical significance: no changes noted
[2019-06-06] MEDS ORDERED: TRANEXAMIC ACID / 0.7% NACL 1000MG/100ML BAG IV ONE (09:51)
[2019-06-06] MEDS ORDERED: fentaNYL citrate 100 MCG/2 ML VIAL IV PRN (10:24)
[2019-06-06] MEDS ORDERED: ATROPINE SULFATE 0.1 MG/ML 10ML SYR IV PRN (10:24)
[2019-06-06] MEDS ORDERED: ePHEDrine sulfate 50 MG/ML AMP IV PRN (10:24)
[2019-06-06] MEDS ORDERED: ONDANSETRON INJ 2 MG/ML 2 ML VIAL IV PRN ×2 (10:24→14:51)
[2019-06-06] MEDS ORDERED: BACITRACIN INJ 50,000 UNIT VIAL ONE (11:13)
[2019-06-06] MEDS ORDERED: ORTHO JOINT ANESTHETIC ONE (11:13)
--- NOTE | 2019-06-06 12:54 | Post Operative Brief Note ---
Immediate Post Op Note v1 Date of Surgery June 06, 2019 Pre & Post Diagnosis Operation Date: 06/06/19 11:10 Pre-Op Diagnosis: PAINFUL LEFT TOTAL KNEE ARTHROPLASTY Post-Op Diagnosis: PAINFUL LEFT TOTAL KNEE ARTHROPLASTY I identified the patient and participated in the time-out.: Yes Procedure Operation Date: 06/06/19 11:10 Actual Procedures p Left Total Knee Revision, Poly Exchange(Left) - Luis Chew DO Surgeon Luis Chew DO Show Host Or Hostess Steven Hill Estimated Blood Loss 25 Findings Consistent with Post-Op Diagnosis Fluids 1600 cc LR Specimens tibial articular surface Anesthesia Type Spinal MAC Complications none Disposition Disposition: Recovery Room Overlapping Procedure I was present for: the critical portions of procedure. I was immediately available: during the entire case. Back up surgeon: was not required during procedure.
--- NOTE | 2019-06-06 13:05 | Operative Report ---
Post Operative Report Pre & Post Diagnosis Operation Date: 06/06/19 11:10 Pre-Op Diagnosis: PAINFUL LEFT TOTAL KNEE ARTHROPLASTY Post-Op Diagnosis: PAINFUL LEFT TOTAL KNEE ARTHROPLASTY I identified the patient and participated in the time-out.: Yes Procedure Operation Date: 06/06/19 11:10 Actual Procedures p Left Total Knee Revision, Poly Exchange(Left) - Luis Chew DO Surgeon Luis Chew DO Commercial Painter Steven Hill Estimated Blood Loss 25 Findings Consistent with Post-Op Diagnosis Fluids 1600 cc LR Specimens Tibial articular surface Anesthesia Type Spinal MAC Complications none Disposition Disposition: Recovery Room Indications The patient is a 68 year old male who presents with complaints of chronic instability of left total knee with history for dislocation which required closed reduction on 12/16/18. The patient has failed outpatient conservative treatments to this point which included NSAIDs, bracing, PT/home exercise/walking program. The patient's pain and limited function have progressed to the point where they severely hinder their activities of daily living and they no longer tolerate exercise programs. They are requesting to proceed with revision total knee replacement surgery. I have indicated the patient for revision left total knee replacement, poly exchange. The risks, benefits and complications of surgery were explained to the patient which include but not limited to infection, acute blood loss, DVT/PE, injury to nerves, vessels, bone, soft tissue, arthrofibrosis, chronic pain, failure of the prosthesis, knee dislocation, leg length discrepancy, need for additional surgery, cardiac and pulmonary events and . The patient wished to proceed with surgery and informed consent was obtained at this time. We will plan for Xarelto or Lovenox post-operatively for DVT prophylaxis due to history of GI bleed on NSAIDs. Upon discharge the patient will be discharged home with home health services. Appropriate clearances by PCP were obtained. Description of Procedure Following induction of spinal anesthesia, a tourniquet was applied to the proximal aspect of the thigh and the patient's left leg was prepped and draped in the usual sterile manner. A timeout was performed and site annalise verified. The limb was exsanguinated with an esmarch bandage and tourniquet was inflated to 300 mmHg. The prior incision was identified and a longitudinal midline incision was made over the anterior knee. Subcutaneous tissue was sharply dissected down to fascia. Electrocautery was used for hemostasis. Next a medial parapatellar arthrotomy was performed. Meticulous removal of hypertrophic synovium and scar tissue was removed with Bovie. The patella was subluxed laterally and the knee was flexed. A garibay retractor was used to expose the synovium above on the anterior aspect of the femur and removed down to bone. Next, the anterior fat pad was removed to aid in visualization. The medial face of the tibia was cleared of soft tissue first with a bovie and a hill elevator. This tissue was retracted posteriorly using a blunt hohmann. Once adequate access was obtained to the total knee prosthesis we removed the tibial articular surface. There was signifant wear of the tip of the tibial articular surface post. The tibial tray was cleared of all soft tissue and debris. We carefully examined both the tibia and femur prosthesis which were found to be well fixed and without signs of wear. A size 10 PS tibial articular surface was trialed. Varus-valgus balance was assessed in 0 degrees of extension and 30, 60 and 90 degrees of flexion. A final tibial articular surface size 10 PS was chosen. Access was gained to the patella and meticulous removal of fibrous soft tissue surrounding the patella button was removed. The patella was cleared of any remaining osteophytes utilizing the rongour. The patella button was found to be stable and well fixed without signs of wear. The knee was found to be well balanced, well aligned, with excellent patellar tracking. The trial tibial articular surface was removed and the knee was irrigated with copious amounts of sterile saline solution with bacitracin. Ortho mix was injected into the posterior capsule at this time. Access to the proximal tibia was once again obtained utilizing two bent hohmann retractors and the final tibial articular surface was inserted. The knee was injected with the remaining Orthomix solution. A bacitracin soak was performed for 3 minutes and the knee was irrigated once more with sterile saline solution mixed with bacitracin. The capsulotomy was closed with #1 Vicryl followed by subcutaneous closure with 2-0 Vicryl suture. Skin closure was performed using francheska. Sterile dressings were applied which included Silverlon, Webril and Deep wrap. The tourniquet was deflated at 68 minutes. The patient was extubated in the OR and transported to the PACU in stable condition. Due to the complex nature of the procedure, the entire surgery was performed with the operational assistance of Steven Hill PA-C. The diver assistant, under direct supervision, was involved in the actual performance of all aspects of the surgical procedure including patient positioning, hemostasis, tissue retraction, instrument management and wound closure. I attest to the content of the Intraoperative Record and any orders documented therein. Any exceptions are noted below.
--- NOTE | 2019-06-06 13:43 | XRay Report ---
XR knee LT 1 or 2V routine CLINICAL HISTORY: Surgical Post Op postoperative evaluation COMPARISON: None. DISCUSSION: Anatomic alignment posttotal left knee arthroplasty. Could contact between prosthetic and underlying bone. Expected soft tissue postoperative change IMPRESSION: Anatomic alignment post total left knee arthroplasty. ACT 112: Negative or not required by law. The above report was generated using voice recognition software. It may contain grammatical, syntax or spelling errors. Electronically signed by: Parker Deal M.D. 06/06/2019 1:41 PM
--- NOTE | 2019-06-06 14:25 | Anesthesiology Progress Note ---
Date of Service June 06, 2019 Anesthesia Post Procedure Vital Signs Vital Signs: Temp Pulse Pulse Resp BP Pulse Ox 06/06/19 14:15 97.9 F 78 14 135/79 100 06/06/19 14:05 97.9 F 73 13 150/92 H 98 06/06/19 13:55 97.9 F 79 17 125/86 97 06/06/19 13:45 80 14 140/85 96 06/06/19 13:35 83 15 143/73 H 100 06/06/19 13:25 78 17 152/96 H 98 06/06/19 13:17 96.8 F L 89 20 134/83 96 06/06/19 09:18 98.8 F 73 20 173/99 H 96 Transfer of Care Handoff Completed per policy Notes Mental Status: alert / awake / arousable and participated in evaluation Patient Amnestic to Procedure: Yes Nausea / Vomiting: adequately controlled Pain: adequately controlled Airway Patency, RR, SpO2: stable & adequate BP & HR: stable & adequate Hydration State: stable & adequate Neuraxial Anesthesia: was administered and sensory block is resolving Anesthetic Complications: no major complications apparent and Pt Satisfied with anesthetic care
[2019-06-06] MEDS ORDERED: HYDROmorphone INJ 0.5 MG/0.5 ML SYR IV PRN (14:51)
[2019-06-06] MEDS ORDERED: METOCLOPRAMIDE HCL INJ 5 MG/ML 2 ML VIAL IV PRN (14:51)
[2019-06-06] MEDS ORDERED: NALOXONE HCL 0.4 MG/1 ML VIAL/CARP IV PRN (14:51)
[2019-06-06] MEDS ORDERED: MAGNESIUM HYDROXIDE SUSP 30 ML UDC PO PRN (14:51)
[2019-06-06] MEDS ORDERED: OXYCODONE HCL IR 5 MG TAB (IMMEDIATE RELEASE) PO PRN (14:51)
[2019-06-06] MEDS ORDERED: bisacodyL 10 MG SUPP PR PRN (14:51)
--- NOTE | 2019-06-06 15:11 | Orthopedic Progress Note ---
Date of Service June 06, 2019 Assessment & Plan (1) Failed total left knee replacement: s/p Revision L TKA, poly exchange -ancef x 24 -DVT ppx: SCDs, TEDs, Lovenox daily -WBAT LLE -PT/OT -PO XR demonstrates a well aligned well fixed prosthesis without fracture/dislocation - am labs -DC planning Subjective Post Operative Progress Note Patient seen in PACU, comfortable, denies complaints, pain well controlled, no acute issues. Still feeling effects of spinal anesthesia. Review of Systems Review of Systems: All systems reviewed & are unremarkable except as noted in HPI & below Constitutional: as per Subjective / HPI Physical Exam Physical Exam: PE LLE limited secondary to spinal anethesia, + 2 DP pulse, compartment soft NT, dressing CDI Constitutional: WD/WN, vitals as above Results & Data Vital Signs (Past 12 Hours) Vital Signs Temp Pulse Pulse Resp BP Pulse Ox 06/06/19 15:02 36.4 C L 69 16 135/82 95 06/06/19 14:40 36.5 C 76 16 146/92 H 93 06/06/19 14:25 36.6 C 72 14 130/79 97 06/06/19 14:15 36.6 C 78 14 135/79 100 06/06/19 14:05 36.6 C 73 13 150/92 H 98 06/06/19 13:55 36.6 C 79 17 125/86 97 06/06/19 13:45 80 14 140/85 96 06/06/19 13:35 83 15 143/73 H 100 06/06/19 13:25 78 17 152/96 H 98 06/06/19 13:17 36.0 C L 89 20 134/83 96 06/06/19 09:18 37.1 C 73 20 173/99 H 96
[2019-06-06] MEDS: ACETAMINOPHEN 500 MG TAB PO SCH ×2 (16:04→20:21)
[2019-06-06] MEDS: SODIUM CHLORIDE 0.9% 1000ML 1,000 ML IV SCH (16:05)
[2019-06-06] MEDS: CEFAZOLIN 2000MG 2,000 MG/15 ML SYR IV SCH (18:33)
[2019-06-06] MEDS: DOCUSATE SODIUM 100 MG CAP PO SCH (20:09)
[2019-06-06] MEDS ORDERED: SENNA 8.6 MG TAB PO SCH (21:00)
[2019-06-07] MEDS: SODIUM CHLORIDE 0.9% 1000ML 1,000 ML IV SCH (02:07)
[2019-06-07] MEDS: CEFAZOLIN 2000MG 2,000 MG/15 ML SYR IV SCH (02:58)
[2019-06-07 05:08] LABS: Hematocrit (blood only) 36.3 % (42-52); Hemoglobin 12.9 g/dL (14.0-18.0); Mean Corpuscular Hemoglobin 32.5 pg (25-34); Mean Corpuscular Hgb Conc 35.5 g/dL (32-36); Mean Corpuscular Volume 91.4 fL (80-100); Mean Platelet Volume 9.9 fL (7.4-10.4); Platelet Count 171 K/uL (130-400); RDW Coefficient of Variation 13.3 % (11.5-14.5); RDW Standard Deviation 44.6 fL (36.4-46.3); Red Blood Count 3.97 M/uL (4.7-6.1); White Blood Count 11.16 K/uL (4.8-10.8)
[2019-06-07 05:33] LABS: BUN Creatinine Ratio 19.4 (10-20); Calcium 8.6 mg/dl (8.5-10.1); Creatinine Clr Calc Pharmacy 90.2 ml/min; Est GFR (African American) 90.2; Est GFR (Non-African American) 77.8; Potassium 3.8 mmol/L (3.5-5.1)
[2019-06-07] MEDS: ACETAMINOPHEN 500 MG TAB PO SCH ×2 (05:52→13:49)
--- NOTE | 2019-06-07 07:05 | Orthopedic Progress Note ---
Date of Service June 07, 2019 Assessment & Plan (1) Failed total left knee replacement: s/p Revision L TKA, poly exchange POD#1 -ancef x 24 -DVT ppx: SCDs, TEDs, Lovenox daily -WBAT LLE -PT/OT -PO XR demonstrates a well aligned well fixed prosthesis without fracture/dislocation - am labs - hgb 12.9 -DC planning - home with HH Subjective Post Operative Progress Note Patient seen in PACU, comfortable, denies complaints, pain well controlled, no acute issues. Denies fevers, chills, nausea, vomiting, shortness of breath or chest pain. Review of Systems Review of Systems: All systems reviewed & are unremarkable except as noted in HPI & below Constitutional: as per Subjective / HPI Physical Exam Physical Exam: LLE NVSI +EHL/FHL/TA/GS SILT grossly, +2 DP pulse, compartments soft NT, dressing cdi. Constitutional: WD/WN, vitals as above Results & Data Vital Signs (Past 12 Hours) Vital Signs Temp Pulse Resp BP BP Pulse Ox 06/07/19 02:57 36.9 C 82 16 165/83 H 96 06/06/19 23:20 36.7 C 69 16 156/87 H 97 Laboratory Results 06/07/19 06/07/19 06/06/19 Range/Units 04:38 04:38 13:20 WBC 11.16 H (4.8-10.8) K/uL RBC 3.97 L (4.7-6.1) M/uL Hgb 12.9 L (14.0-18.0) g/dL Hct 36.3 L (42-52) % MCV 91.4 (80-100) fL MCH 32.5 (25-34) pg MCHC 35.5 (32-36) g/dL RDW Std Deviation 44.6 (36.4-46.3) fL RDW Coeff of Kem 13.3 (11.5-14.5) % Plt Count 171 (130-400) K/uL MPV 9.9 (7.4-10.4) fL Sodium 137 (136-145) mmol/L Potassium 3.8 (3.5-5.1) mmol/L Chloride 107 (98-107) mmol/L Carbon Dioxide 26 (21-32) mmol/L Anion Gap 4.0 (3-11) BUN 19 H (7-18) mg/dl Creatinine 0.98 (0.6-1.4) mg/dl Est Cr Clr Drug Dosing 90.2 ml/min Est GFR ( Amer) 90.2 Est GFR (Non-Af Amer) 77.8 BUN/Creatinine Ratio 19.4 (10-20) Glucose 175 H (70-99) mg/dl POC Glucose 127 H (70-99) Calcium 8.6 (8.5-10.1) mg/dl 06/06/19 Range/Units 09:00 WBC (4.8-10.8) K/uL RBC (4.7-6.1) M/uL Hgb (14.0-18.0) g/dL Hct (42-52) % MCV (80-100) fL MCH (25-34) pg MCHC (32-36) g/dL RDW Std Deviation (36.4-46.3) fL RDW Coeff of Kem (11.5-14.5) % Plt Count (130-400) K/uL MPV (7.4-10.4) fL Sodium (136-145) mmol/L Potassium (3.5-5.1) mmol/L Chloride (98-107) mmol/L Carbon Dioxide (21-32) mmol/L Anion Gap (3-11) BUN (7-18) mg/dl Creatinine (0.6-1.4) mg/dl Est Cr Clr Drug Dosing ml/min Est GFR ( Amer) Est GFR (Non-Af Amer) BUN/Creatinine Ratio (10-20) Glucose (70-99) mg/dl POC Glucose 112 H (70-99) Calcium (8.5-10.1) mg/dl
--- NOTE | 2019-06-07 08:06 | Anesthesiology Progress Note ---
Date of Service June 07, 2019 Anesthesia Post Procedure Vital Signs Vital Signs: Temp Pulse Pulse Resp BP BP Pulse Ox 06/07/19 07:43 36.8 C 72 18 157/93 H 97 06/07/19 02:57 36.9 C 82 16 165/83 H 96 06/06/19 23:20 36.7 C 69 16 156/87 H 97 06/06/19 17:40 36.6 C 75 16 146/75 H 95 06/06/19 16:37 36.5 C 74 16 148/80 H 96 06/06/19 15:43 36.5 C 76 16 148/64 H 94 06/06/19 15:02 36.4 C L 69 16 135/82 95 06/06/19 14:40 36.5 C 76 16 146/92 H 93 06/06/19 14:25 36.6 C 72 14 130/79 97 06/06/19 14:15 36.6 C 78 14 135/79 100 06/06/19 14:05 36.6 C 73 13 150/92 H 98 06/06/19 13:55 36.6 C 79 17 125/86 97 06/06/19 13:45 80 14 140/85 96 06/06/19 13:35 83 15 143/73 H 100 06/06/19 13:25 78 17 152/96 H 98 06/06/19 13:17 36.0 C L 89 20 134/83 96 06/06/19 09:18 37.1 C 73 20 173/99 H 96 Pain Intensity Left Knee: Pain Intensity: 0 Notes Mental Status: alert / awake / arousable and participated in evaluation Patient Amnestic to Procedure: Yes Nausea / Vomiting: adequately controlled Pain: adequately controlled Airway Patency, RR, SpO2: stable & adequate BP & HR: stable & adequate Hydration State: stable & adequate Neuraxial Anesthesia: was administered and sensory block resolved Anesthetic Complications: no major complications apparent and Pt Satisfied with anesthetic care
[2019-06-07] MEDS: DOCUSATE SODIUM 100 MG CAP PO SCH (08:54)
[2019-06-07] MEDS ORDERED: MULTIVITAMIN TAB PO SCH (09:00)
[2019-06-07] MEDS ORDERED: hydroCHLOROthiazide 25 MG TAB PO SCH (09:00)
[2019-06-07] MEDS ORDERED: AMLODIPINE BESYLATE 5 MG TAB PO SCH (09:00)
[2019-06-07] MEDS ORDERED: ENOXAPARIN INJ 40 MG/0.4 ML SYR SQ SCH (09:00)
[2019-06-07] MEDS ORDERED: ROSUVASTATIN CALCIUM 20 MG TAB PO SCH (09:00)
[2019-06-07] MEDS ORDERED: ASPIRIN 81 MG ECTAB PO SCH (09:45)
--- NOTE | 2019-06-08 21:19 | Discharge Summary ---
Date of Service June 08, 2019 Admission HPI Per Admitting Provider The patient is a 68 year old male who presents with complaints of chronic instability of left total knee with history for dislocation which required closed reduction on 12/16/18. The patient has failed outpatient conservative treatments to this point which included NSAIDs, bracing, PT/home exercise/walking program. The patient's pain and limited function have progressed to the point where they severely hinder their activities of daily living and they no longer tolerate exercise programs. They are requesting to proceed with revision total knee replacement surgery. Principal Diagnosis Revision left total knee replacement Discharge Exam LLE NVSI +EHL/FHL/TA/GS SILT grossly, +2 DP pulse, compartments soft NT, dressing cdi. 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 The patient's symptoms have progressed to the point where it has been difficult to perform even normal activities of daily living. I indicated the patient for a revision left total knee arthroplasty, the risks, benefits and complications of the procedure include but not limited to infection, bleeding, damage to bone, nerves, vessels, surrounding soft tissue, may develop blood clots, loss of function, leg length discrepancy, dislocation, failure of the components, loosening of the components, the need for additional surgery and . The patient wished to proceed with surgery at this time and informed consent was obtained. Hospital Course: On 06/06/19 the patient was taken to the operating room, adequate anesthesia administered and underwent a revision left total knee arthroplasty, tibial articular surface. The patient tolerated the procedure well and was taken to the PACU in stable condition. Post-operatively the patient was started on a DVT ppx medication and given appropriate IV antibiotics. Consults were placed to physical therapy, occupational therapy and case management. On POD#1, the patient did well overnight and their pain was well controlled. Labs were drawn and the Hgb was 12.9. The patient progressed well with PT. Dressings were changed at this time and the incision was clean, dry and intact. The patients hospital stay was relatively uneventful and they were deemed stable by the orthopedic team and consultants to be discharged home with HH on 06/07/19. Discharge Instructions: Upon discharge the patient may weight bear as tolerates through their operative extremity. They were instructed to keep the incision clean and dry at all times. The patient may shower but should not submerge the incision, avoid bathing, pools and hot tubes. The patient was given a script for pain medication and should take as instructed. The patient was given a script for DVT ppx 81mg ASA BID and should take as directed. The patient refused Lovenox and Xarelto. The patient was instructed to not drive or travel for long distances until cleared to do so. If the patient develops any symptoms of fevers, chills, nausea, vomiting, increased redness, swelling, pain or drainage from the surgical site, they should notify the office and/or proceed to the nearest emergency room. The patient should follow up in 10-14 days after surgery for their routine post-operative follow-up appointment and should call the office to confirm the date and time. s/p Revision L TKA, poly exchange POD#1 -ancef x 24 -DVT ppx: SCDs, TEDs, Lovenox daily -WBAT LLE -PT/OT -PO XR demonstrates a well aligned well fixed prosthesis without fracture/dislocation - am labs - hgb 12.9 -DC planning - home with Total Time Total Time Spent Total Time Spent (In Minutes): 30 minutes Discharge Plan Discharge Items Patient Disposition: Home - Home Health Services Reason For Visit: PAINFUL LEFT TOTAL KNEE ARTHROPLASTY Discharge Diagnosis: Revision left total knee arthroplasty Condition on Discharge: Good Activity: Per Instructions section Lifting: Wait until after follow-up appointment Bathing: Keep incision dry Bathing Comment: No bathing, pools or hot tubs. Sexual Activity: Wait until after follow-up appointment Exercise/Sports: Wait until after follow-up appointment Driving/Machine Use: No driving Weightbearing: Full weightbearing Non-emergency contact: Primary Care Provider and Surgeon Call non-emergency contact if: you have any medication questions, your symptoms worsen, your pain is not controlled, your pain is worsening, your pain is unusual for you, your pain is concerning for you, you have a fever, your temperature is above 101, your wound has increased redness, your wound has increased drainage and your wound pain has increased Follow-up/Referrals: Yola Garcia MD [Primary Care Provider] - Diet: Regular Addtl Attending Provider Instructions: ACTIVITY RECOMMENDATIONS: SELF CARE INSTRUCTIONS AFTER REVISION TOTAL KNEE REPLACEMENT A. You may need to continue a physical therapy program after discharge from the hospital. There are several options available to you. Your doctor will assist you in selecting the best one for you. 1. An out-patient facility 2 to 3 times a week for therapy or home therapy. 2. Continue working on all exercises taught to you in the hospital. Your goals should be to increase bending of your knee to 90 degrees and beyond and to fully straighten your knee. B. You may progress at your own pace from walking with a walker or crutches to a cane; then to no assistive devices. C. Make walking a part of your daily routine. Be up as much as comfortable with rest periods throughout the day. Rest with leg elevation is very important. Use the ice wrap frequently for the first 3-4 weeks. D. There are no restrictions on activities. You may ride in a car, shop, participate in senior catering sales manager and all social activities. E. Wear the long elastic stockings (ELPIDIO hose) 20 hours a day for 2 weeks after surgery. They can be removed several times a day for laundering and for a bath. F. You may shower, no tub baths until cleared by your doctor. SPECIAL CARE INSTRUCTIONS: VERY IMPORTANT TO READ AND REVIEW A. There are a few signs you need to watch for after you are home. Call [facility] [place] if you notice any of the followin. Increased severe knee pain. Some pain is expected especially when you exercise. 2. Increased swelling in your leg or knee; pain or swelling of the calf muscle in either lower leg. 3. Any fluid drainage from the incision. 4. Shortness of breath or chest pain. B. Please call [facility] at if you have any concerns or questions about your operation or recovery. The doctor or his nurse will return your call promptly. C. You must take antibiotics before dental work, bladder, bowel or other surgery. Your doctor will provide you with a permanent care to carry describing this precaution. IMPORTANT: * REMEMBER TO TAKE EC 81MG ASPIRIN TWICE DAILY FOR 4 WEEKS UNLESS OTHERWISE DIRECTED. THIS IS YOUR BLOOD THINNER. * HIGH RISK PATIENTS MAY BE PRESCRIBED A STRONGER BLOOD THINNER. THIS WILL BE PROVIDED AT DISCHARGE. * CALL IF INCREASED PAIN, REDNESS, DRAINAGE OR FEVER GREATER THAT 101. * WEAR ELPIDIO HOSE 20 HOURS PER DAY FOR 2 WEEKS. * YOU MAY HAVE A LARGE BAND-AID LIKE DRESSING (SILVERON). THIS WILL REMAIN ON YOUR INCISION FOR 7 DAYS, THEN CAN BE REMOVED. IF INCISION IS LEAKING THROUGH DRESSING, CALL THE OFFICE . FOLLOW UP VISIT: If appointment is not already scheduled: Please call [facility] [place] to make a follow-up appointment for 2 weeks after your surgery at . Pending Studies at Discharge: No Stand-Alone Forms: [employer], Smoking Cessation Medications and DC Order Prescriptions: New acetaminophen 500 mg Tablet 1,000 mg PO Q8 PRN (Reason: pain/fever) Qty: 90 RF: 0 oxycodone 5 mg Tablet 5 mg PO Q6H MDD 6 tabs PRN (Reason: pain) Qty: 30 RF: 0 sennosides [Senokot] 8.6 mg Tablet 17.2 mg PO HS PRN (Reason: constipation) Qty: 28 RF: 0 aspirin [Ecotrin Low Strength] 81 mg Tablet,Delayed Release (Dr/Ec) 81 mg PO BID 28 Days Qty: 56 RF: 0 Continued amlodipine 5 mg tablet 5 mg PO QAM RF: 0 hydrochlorothiazide 25 mg tablet 25 mg PO QAM RF: 0 rosuvastatin 20 mg Tablet 20 mg PO QAM RF: 0 Discontinued naproxen sodium [Aleve] 220 mg Tablet 220 mg PO QAM RF: 0 acetaminophen [Tylenol Extra Strength] 500 mg Tablet 1,000 mg PO Q8 PRN (Reason: pain) Qty: 90 RF: 0 Discharge Orders: Discharge Order (Routine); Ordered 06/07/19 Ordered By: Luis Chanel/Other Patient Handouts: Diabetes Type 2 Coping, Diabetes Healthy Meals, Diabetes Meal Planning Admission Data Admit Date/Time: 06/06/19 13:19 Attending Provider: Luis Chew Admit Provider: Luis Chew Primary Care Provider: Yola Garcia Other Interventions: Discharge Summary Assessment (RN) Last Done: 06/07/19 11:51 DC Date/Time DO NOT enter until pt leaves facility: 06/07/19 13:56
== END 2019-06-07 13:56 | disposition home health service (06) | DRG 489 ==
LOC: ASU 08:26 → 3E 13:19